=== PATIENT | female | born 1995 | race Caucasian/White ===

== ENCOUNTER 2017-07-21 08:37 | Inpatient (IN) | payer OTHER ==
[~2017-07-21] VITALS: Ht 172.7 cm; Wt 84.8 kg
[2017-07-21] MEDS ORDERED: ONDANSETRON PF 4 MG/2 ML VIAL. IV ONE (09:00)
[2017-07-21 09:12] LABS: BASO # 0.1 x10^3/uL (0.0-0.2); BASO % 1 % (0-3); EOS # 0.2 x10^3/uL (0.0-0.7); EOS % 2 % (0-3); HEMATOCRIT 39.1 % (36.0-47.0); HEMOGLOBIN 13.5 g/dL (12.0-15.5); LYMPH # 1.7 x10^3/uL (1.0-4.8); LYMPH % 25 % (24-48); MEAN CORPUSCULAR HEMOGLOBIN 28 pg (25-35); MEAN CORPUSCULAR HGB CONC 34 g/dL (31-37); MEAN CORPUSCULAR VOLUME 81 fL (79-100); MONO # 0.5 x10^3/uL (0.0-1.1); MONO % 7 % (0-9); NEUT # 4.4 x10^3uL (1.8-7.7); NEUT % 65 % (31-73); PLATELET COUNT 361 x10^3/uL (140-400); RED BLOOD COUNT 4.82 x10^6/uL (3.50-5.40); RED CELL DISTRIBUTION WIDTH 13.8 % (11.5-14.5); WHITE BLOOD COUNT 6.8 x10^3/uL (4.0-11.0)
[2017-07-21 09:31] LABS: ALBUMIN 3.1 g/dL (3.4-5.0); ALBUMIN/GLOBULIN RATIO 0.9 (1.0-1.7); CALCIUM 8.8 mg/dL (8.5-10.1); CREATININE 0.8 mg/dL (0.6-1.0); GFR 88.9; POTASSIUM 3.8 mmol/L (3.5-5.1); TOTAL BILIRUBIN 0.3 mg/dL (0.2-1.0); TOTAL PROTEIN 6.7 g/dL (6.4-8.2)
--- NOTE | 2017-07-21 09:43 | RAD ---
Examination: Ultrasound abdomen limited History: History of right upper quadrant pain for 2 weeks Comparison: None available Findings: The visualized pancreas grossly appears unremarkable. The visualized IVC IVC appear patent. No evidence of gallstones identified. The gallbladder wall thickness measures 1.8 mm. The common bile duct measures 4 mm in transverse dimension. The echogenicity of the liver grossly appears unremarkable. The liver measures 17.6 cm. The right kidney measures 12.6 x 5.4 x 4.9 cm. Impression: Unremarkable visualized exam.
[2017-07-21] MEDS ORDERED: HYDROmorphone PF 1 MG/ML DISP.SYRIN IV ONE ×2 (09:45→10:30)
[2017-07-21] MEDS ORDERED: HYDROmorphone PF 1 MG/ML DISP.SYRIN IV PRN (10:30)
[2017-07-21] MEDS ORDERED: IV NORMAL SALINE 1,000ML 1,000 ML IV SCH (10:45)
--- NOTE | 2017-07-21 11:33 | PHYS DOC ---
Past History Past Medical History: No Pertinent History Past Surgical History: Tonsillectomy Alcohol Use: None Drug Use: None Adult General Chief Complaint Chief Complaint: ABDOMINAL PAIN HPI HPI Patient is a 22 year old F who presents with mild to moderate epigastric and right upper quadrant pain that has been constant with intermittent worsening over the past 1-2 days. She describes the symptoms as previously being intermittent and starting approximately 1-2 weeks ago. She feels that her symptoms are associated with nausea and loose stools. Her symptoms are worse when she eats or drinks. She has no other associated symptoms. She has no other exacerbating or alleviating factors. Review of Systems Review of Systems Constitutional: Denies fever or chills [] Eyes: Denies change in visual acuity, redness, or eye pain [] HENT: Denies nasal congestion or sore throat [] Respiratory: Denies cough or shortness of breath [] Cardiovascular: No additional information not addressed in HPI [] GI: Negative except history of present illness : Denies dysuria or hematuria [] Musculoskeletal: Denies back pain or joint pain [] Integument: Denies rash or skin lesions [] Neurologic: Denies headache, focal weakness or sensory changes [] Endocrine: Denies polyuria or polydipsia [] All other systems were reviewed and found to be within normal limits, except as documented in this note. Family History Family History No significant family history reported Current Medications Current Medications Current medications were reviewed Current Medications Medications (Trade) Dose Ordered Sig/Tess Start Time Stop Time Status Last Admin Dose Admin Hydromorphone HCl (Dilaudid) 0.5 mg PRN Q2HR PRN 07/21/17 10:30 07/22/17 10:29 Ondansetron HCl (Zofran) 4 mg PRN Q4HRS PRN 07/21/17 10:30 07/22/17 10:29 Sodium Chloride 1,000 ml @ 0 mls/hr Q0M 07/21/17 10:45 07/22/17 10:44 Allergies Allergies Allergies Coded Allergies Type Severity Reaction Last Updated Verified ketoprofen Allergy Unknown 07/21/17 Yes Physical Exam Physical Exam Constitutional: Well developed, well nourished, no acute distress, non-toxic appearance. [] HENT: Normocephalic, atraumatic, bilateral external ears normal, oropharynx moist, no oral exudates, nose normal. [] Eyes: EOMI, conjunctiva normal, no discharge. [] Neck: Normal range of motion, no tenderness, supple, no stridor. [] Cardiovascular:Heart rate regular rhythm, no murmur [] Lungs & Thorax: Bilateral breath sounds clear to auscultation [] Abdomen: Bowel sounds normal, soft, no masses, no pulsatile masses. [] RUQ and Mid epigastric TTP with radiation to the back. When palpating in the RLQ pain radiated to the RUQ Skin: Warm, dry, no erythema, no rash. [] Back: No tenderness, no CVA tenderness. [] Extremities: No tenderness, no cyanosis, no clubbing, ROM intact, no edema. [] Neurologic: Alert and oriented X 3, normal motor function, normal sensory function, no focal deficits noted. [] Psychologic: Affect normal, judgement normal, mood normal. [] Current Patient Data Vital Signs Vital Signs Date Time Temp Pulse Resp B/P (MAP) Pulse Ox O2 Delivery O2 Flow Rate FiO2 07/21/17 10:53 61 16 102/51 (68) 98 07/21/17 10:36 Room Air 07/21/17 08:46 97.8 Lab Results Laboratory Tests Test 07/21/17 08:59 07/21/17 10:18 White Blood Count 6.8 x10^3/uL (4.0-11.0) Red Blood Count 4.82 x10^6/uL (3.50-5.40) Hemoglobin 13.5 g/dL (12.0-15.5) Hematocrit 39.1 % (36.0-47.0) Mean Corpuscular Volume 81 fL (79-100) Mean Corpuscular Hemoglobin 28 pg (25-35) Mean Corpuscular Hemoglobin Concent 34 g/dL (31-37) Red Cell Distribution Width 13.8 % (11.5-14.5) Platelet Count 361 x10^3/uL (140-400) Neutrophils (%) (Auto) 65 % (31-73) Lymphocytes (%) (Auto) 25 % (24-48) Monocytes (%) (Auto) 7 % (0-9) Eosinophils (%) (Auto) 2 % (0-3) Basophils (%) (Auto) 1 % (0-3) Neutrophils # (Auto) 4.4 x10^3uL (1.8-7.7) Lymphocytes # (Auto) 1.7 x10^3/uL (1.0-4.8) Monocytes # (Auto) 0.5 x10^3/uL (0.0-1.1) Eosinophils # (Auto) 0.2 x10^3/uL (0.0-0.7) Basophils # (Auto) 0.1 x10^3/uL (0.0-0.2) Sodium Level 141 mmol/L (136-145) Potassium Level 3.8 mmol/L (3.5-5.1) Chloride Level 107 mmol/L (98-107) Carbon Dioxide Level 25 mmol/L (21-32) Anion Gap 9 (6-14) Blood Urea Nitrogen 7 mg/dL (7-20) Creatinine 0.8 mg/dL (0.6-1.0) Estimated GFR (Cockcroft-Gault) 88.9 BUN/Creatinine Ratio 9 (6-20) Glucose Level 90 mg/dL (70-99) Lactic Acid Level 0.9 mmol/L (0.4-2.0) Calcium Level 8.8 mg/dL (8.5-10.1) Total Bilirubin 0.3 mg/dL (0.2-1.0) Aspartate Amino Transferase (AST) 14 U/L (15-37) L Alanine Aminotransferase (ALT) 14 U/L (14-59) Alkaline Phosphatase 68 U/L (46-116) Total Protein 6.7 g/dL (6.4-8.2) Albumin 3.1 g/dL (3.4-5.0) L Albumin/Globulin Ratio 0.9 (1.0-1.7) L Amylase Level 60 U/L (25-115) Lipase 130 U/L (73-393) POC Urine HCG, Qualitative hcg negative (Negative) EKG EKG [] Radiology/Procedures Radiology/Procedures US abdomen limited - Impressions: No acute disease Course & Med Decision Making Course & Med Decision Making Pertinent Labs and Imaging studies reviewed. (See chart for details) Will admit for pain control. Also plan to obtain a PIPIDA scan if possible Dragon Disclaimer Dragon Disclaimer This electronic medical record was generated, in whole or in part, using a voice recognition dictation system. Departure Departure: Impression: Primary Impression: Abdominal pain Disposition: ADMITTED INPATIENT Condition: STABLE Problem Qualifiers Primary Impression: Abdominal pain Abdominal location: right lower quadrant Qualified Codes: R10.31 - Right lower quadrant pain VIVIANE MONTGOMERY MD Jul 21, 2017 11:33
[2017-07-21] MEDS ORDERED: SINCALIDE 1.7 MCG in IV NORMAL SALINE 50ML 30 ML IV ONE (11:45)
[2017-07-21 13:11] VITALS: BP 106/61
--- NOTE | 2017-07-21 13:12 | RAD ---
Examination: HIDA scan History: History of abdominal pain for 2 weeks Comparison: Ultrasound same day exam Findings: 5.5 mCi of technetium 99m Choletec was injected IV and anterior gamma camera images were performed for 60 minutes. At 60 minutes 1.7 mcg of CCK was slowly infused and additional imaging was performed for 30 minutes for calculation of gallbladder ejection fraction. There is normal radiotracer uptake identified in the liver with normal excretion of the radiotracer into the gallbladder, common bile duct and the small bowel. The calculated gallbladder is contraction is 86%. Impression: Normal HIDA scan.
[2017-07-21] MEDS ORDERED: NORE1PAT7 TD (13:53)
[2017-07-21] MEDS: HYDROmorphone PF 2 MG/ML VIAL IV PRN ×2 (15:32→19:23)
[2017-07-21 15:53] VITALS: BP 109/71
[2017-07-21] MEDS: IV NORMAL SALINE 1,000ML 1,000 ML IV SCH (17:29)
[2017-07-21] MEDS ORDERED: IOHEXOL 240 MG/ML 50ML VIAL. ONE (17:31)
[2017-07-21] MEDS: ONDANSETRON PF 4 MG/2 ML VIAL. IV PRN (17:32)
[2017-07-21] MEDS: PANTOPRAZOLE IV PUSH 40 MG VIAL. IVP SCH (17:32)
[2017-07-21] MEDS ORDERED: IOHEXOL 300 MG/ML 75 ML VIAL. IV ONE (18:00)
[2017-07-21] MEDS ORDERED: IOHEXOL 240 MG/ML 50ML VIAL. PO ONE (18:00)
[2017-07-21] MEDS ORDERED: CONTRAST GIVEN MC PRN (18:00)
[2017-07-21 19:26] VITALS: BP 108/72
--- NOTE | 2017-07-21 19:42 | HP ---
ADMIT DATE: 07/21/2017 HISTORY OF PRESENT ILLNESS: The patient is a 22-year-old female patient who apparently came to the Emergency Room complaining of pain that has been going on for almost 2 weeks now. Initially, it was intermittent and since Monday, it has been constant. She saw , her director of plant operations, who scheduled a HIDA scan, but was not done. She did complain also of nausea and vomiting yesterday, and also had episodes of diarrhea only once yesterday. She was evaluated in the Emergency Room. So far, all her lab works are unremarkable. Her serum lipase was normal as her pain is mostly in the right upper quadrant. The pain is not radiating through and through to the back, and she denied any chills, rigors or fever. The pain is aggravated by food and relieved by salad according to her. Her abdominal ultrasound was unremarkable, which did not show any evidence of acute cholecystitis and HIDA scan showed there is normal radiotracer uptake identified in the liver with normal excretion of the radiotracer into the gallbladder, common bile duct, and small bowel. The calculated gallbladder is 86%. The patient was admitted for pain management and to investigate the source of her to have discomfort further history. PAST MEDICAL HISTORY: Significant for irritable bowel syndrome. PAST SURGICAL HISTORY: Significant for tonsillectomy and adenoidectomy. ALLERGIES: She is allergic to KETOPROFEN. MEDICATIONS: She is currently only on control pills. FAMILY HISTORY: She has one brother older and healthy. Father is 56 years old and has had bypass surgery when he was 45. Her mother is alive at age of 55 and has cholecystectomy. SOCIAL HISTORY: She is , has 1 son. She does not smoke, drink alcohol very occasionally. He does not use drugs. 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 REVIEW OF SYSTEMS: As per history of present illness. PHYSICAL EXAMINATION GENERAL: When I saw her, she looked well and was clearly in no apparent respiratory distress, no pallor, jaundice, cyanosis, or thyromegaly. No jugular venous distension. No limb edema. VITAL SIGNS: Her heart rate was 64, blood pressure was 190/71, temperature was 97.9, respiratory rate 20, and oxygen saturation was 96%. HEAD, EYES, EARS, NOSE, AND THROAT: Normocephalic, atraumatic. NECK: Supple. HEART: Showed normal first and second heart sounds with no gallop, rub or murmur. CHEST: Clear to auscultation. No crepitation or rhonchi. ABDOMEN: Slightly distended, soft with tenderness mostly in the right upper quadrant. There is no guarding or rigidity. No organomegaly. Hernial orifice intact. Bowel sounds normal. NEUROLOGIC: She was awake, alert, responding appropriately. Cranial nerves intact. EXTREMITIES: She moves extremities without difficulty. She ambulates without assistance or assistive devices. LABORATORY DATA: Showed serum sodium of 141, potassium 3.8, chloride 107, bicarbonate 25, anion gap of 9, BUN 7, creatinine 0.8, estimated GFR was 80 mL per minute. Her glucose was 90. Lactic acid was 0.9. Calcium was 8.8. Total bilirubin, AST, ALT, alkaline phosphatase were normal. Her total protein was 6.7, albumin 3.1, amylase was 60, and serum lipase 130. Her white cell count was 6800, hemoglobin 13.5, hematocrit 39, MCV 81, and platelet count of 361,000. Her urinalysis showed that her urine test was negative. As I stated, her abdominal ultrasound showed that the visualized pancreas grossly appears unremarkable. The visualized IVC appears patent, no evidence of gallstones identified. The gallbladder wall thickness measures 1.8 mm. The common bile duct measures 4 mm in transverse diameter and echogenicity of the liver grossly appears unremarkable. The liver measures 17.6 cm. The right kidney measures 12.6 x 5.4 x 4.9 cm, essentially normal. Her HIDA scan was also unremarkable, showed a tracer into the gallbladder, common bile duct, and the small bowel, and a calculated gallbladder in contraction is 86%, so severe intractable right upper quadrant pain, so far with no obvious cause. PLAN: My plan is to continue with IV fluid. The patient can be on clear liquid diet. If she is tolerating diet, we will continue with pain medication and antiemetic. I will arrange for her to repeat all her labs tomorrow and also arrange for a CT scan of the abdomen and pelvis with oral and IV contrast and we will decide the further management accordingly. SINDHU BUCKLEY MD DR: SHARAD/edward JOB#: [id number] / [id number]
--- NOTE | 2017-07-21 19:44 | RAD ---
CT abdomen and pelvis with contrast 07/21/2017 Clinical indications: Right upper quadrant abdominal pain. No surgery or known injury. COMPARISON: None. TECHNIQUE: Multiple CT images of the abdomen and pelvis were obtained following the intravenous and ministration of 75 mL Omnipaque 300. *One or more of the following individualized dose reduction techniques were utilized for this examination: 1. Automated exposure control. 2. Adjustment of the mA and/or kV according to patient size. 3. Use of iterative reconstruction technique. FINDINGS: There is a 4 mm noncalcified nodule in the left lower lobe series 2/image 7. There is a 2 mm noncalcified nodule in the right lower lobe series 2/image 5. Heart size is normal. Liver, gallbladder, spleen, adrenal glands, pancreas and kidneys are unremarkable. Abdominal aorta is normal in caliber. Major portal, splenic and visualized appear mesenteric veins are patent. No retroperitoneal or mesenteric lymphadenopathy. No abdominal free fluid. No pneumoperitoneum. Appendix is normal in appearance. The small and large bowel loops are normal in caliber without obstruction. Urinary bladder and uterus unremarkable. No iliac or inguinal lymphadenopathy. No pelvic free fluid. There are no destructive osseous lesions. IMPRESSION: 1. No CT evidence of acute abdominopelvic process. 2. Bibasilar noncalcified pulmonary nodules, largest measuring 4 mm, indeterminate. Nonemergent dedicated CT chest is recommended. Electronically signed by: Stephen Galvin MD (07/21/2017 7:40 PM) [facility]
[2017-07-22 00:27] VITALS: BP 105/70
[2017-07-22] MEDS: HYDROmorphone PF 2 MG/ML VIAL IV PRN ×3 (03:02→12:04)
[2017-07-22] MEDS: IV NORMAL SALINE 1,000ML 1,000 ML IV SCH ×3 (03:02→23:30)
[2017-07-22] MEDS: ONDANSETRON PF 4 MG/2 ML VIAL. IV PRN (05:38)
[2017-07-22 05:40] VITALS: BP 110/74
[2017-07-22 06:06] LABS: BASO % 1 % (0-3); EOS # 0.2 x10^3/uL (0.0-0.7); EOS % 3 % (0-3); HEMATOCRIT 35.2 % (36.0-47.0); HEMOGLOBIN 11.9 g/dL (12.0-15.5); LYMPH # 2.3 x10^3/uL (1.0-4.8); LYMPH % 36 % (24-48); MEAN CORPUSCULAR HEMOGLOBIN 28 pg (25-35); MEAN CORPUSCULAR HGB CONC 34 g/dL (31-37); MEAN CORPUSCULAR VOLUME 82 fL (79-100); MONO # 0.5 x10^3/uL (0.0-1.1); MONO % 8 % (0-9); NEUT # 3.3 x10^3uL (1.8-7.7); NEUT % 53 % (31-73); PLATELET COUNT 322 x10^3/uL (140-400); RED BLOOD COUNT 4.28 x10^6/uL (3.50-5.40); RED CELL DISTRIBUTION WIDTH 13.9 % (11.5-14.5); WHITE BLOOD COUNT 6.3 x10^3/uL (4.0-11.0)
[2017-07-22 06:21] LABS: ALBUMIN 2.6 g/dL (3.4-5.0); ALBUMIN/GLOBULIN RATIO 0.8 (1.0-1.7); C REACTIVE PROTEIN 5.5 mg/L (0-3.3); CALCIUM 8.2 mg/dL (8.5-10.1); CREATININE 0.8 mg/dL (0.6-1.0); GFR 88.9; POTASSIUM 3.7 mmol/L (3.5-5.1); TOTAL BILIRUBIN 0.3 mg/dL (0.2-1.0); TOTAL PROTEIN 5.8 g/dL (6.4-8.2)
[2017-07-22 07:15] LABS: SEDIMENTATION RATE 3 (0-25)
[2017-07-22] MEDS: PANTOPRAZOLE IV PUSH 40 MG VIAL. IVP SCH (08:21)
[2017-07-22 10:41] VITALS: BP 106/71
[2017-07-22] MEDS ORDERED: SUCRALFATE 1 GM/10 ML ORAL.SUSP. PO ONE (14:00)
[2017-07-22 15:50] VITALS: BP 107/69
[2017-07-22] MEDS: SUCRALFATE 1 GM/10 ML ORAL.SUSP. PEG SCH ×2 (16:31→21:38)
[2017-07-22 19:29] VITALS: BP 112/72
--- NOTE | 2017-07-23 01:48 | PN ---
DATE: 07/22/2017 SUBJECTIVE: The patient is resting slightly propped up in bed, no apparent distress. She continued to complain of abdominal pain rated at 6/10. She has also nausea, but no vomiting. All her lab works including sed rate and CRP are normal. Her abdominal ultrasound, HIDA scan, and CT scan of the abdomen and pelvis are all unremarkable. OBJECTIVE: GENERAL: On examining her today, she looked well and was clearly in no apparent respiratory distress, pale, but no jaundice, cyanosis, or thyromegaly. No jugular venous distension. No limb edema. VITAL SIGNS: Her heart rate was 63, blood pressure 106/71, temperature was 97.8, respiratory rate was 20, and oxygen saturation was 98%. HEAD, EYES, EARS, NOSE, AND THROAT: Normocephalic, atraumatic. NECK: Supple. HEART: Showed normal first and second heart sounds. No gallop, rub, or murmur. CHEST: Clear to auscultation. No crepitation or rhonchi. ABDOMEN: Distended, soft, nontender. NEUROLOGIC: She was awake, alert, responding appropriately, and cranial nerves intact. She moves extremities without difficulty. Her intake was 2250, output was 750. LABORATORY DATA: As of this morning, her white cell count was 6300, hemoglobin 11.9, hematocrit 35, MCV 82, and platelet count of 232,000. Her chemistry showed a serum sodium 141, potassium 3.7, chloride 107, bicarbonate 26, anion gap of 8, BUN 5, creatinine 0.8, estimated GFR was 89 mL per minute. Her glucose was 89. Lactic acid was 0.9. Her calcium was 8.2. Total bilirubin, AST, ALT, alkaline phosphatase were normal. Her C-reactive protein was 5.5 mg/dL. Total protein 5.8, albumin 2.6. Serum lipase was 90. Her CT scan of the abdomen and pelvis showed that no CT scan evidence of acute abdominopelvic process, bibasilar noncalcified pulmonary nodules, largest measuring 4 mm, indeterminate. PLAN: To continue with IV fluid, advance her diet as tolerated. Add Carafate and she is able to tolerate her food. We can discharge her to arrange for an outpatient upper GI endoscopy. AHMED M. MARCIO, MD DR: SHARAD/edward JOB#: [id number] / [id number]
[2017-07-23 05:54] VITALS: BP 90/56
[2017-07-23] MEDS: PANTOPRAZOLE IV PUSH 40 MG VIAL. IVP SCH ×2 (07:30→07:57)
[2017-07-23] MEDS: SUCRALFATE 1 GM/10 ML ORAL.SUSP. PEG SCH (07:57)
[2017-07-23 11:17] VITALS: BP 115/79
[2017-07-23] MEDS ORDERED: SUCR1TAB35 PO (11:20)
[2017-07-23] MEDS ORDERED: PANT40TA3 PO (11:20)
--- NOTE | 2017-07-23 12:02 | DS ---
DATE OF DISCHARGE: 07/23/2017 HOSPITAL COURSE: The patient was admitted with severe intractable right upper quadrant pain. She was extensively investigated. She has an abdominal ultrasound, HIDA scan as well as CT scan of the abdomen and pelvis without any findings. We did start her on IV Protonix as well as Carafate and that her pain has dramatically improved. Has been able to tolerate food and her diet was advanced as tolerated and today the pain has almost completely subsided, and she will be discharged home to continue with this treatment and was given Dr. Jorge Luis Calles and I recommended that she should contact his office and follow up with him as she might eventually require upper GI endoscopy. PHYSICAL EXAMINATION: GENERAL: On examining her today, she looked well and was clearly in no apparent respiratory distress, pale, but no jaundice, cyanosis, or thyromegaly. No jugular venous distension. No limb edema. VITAL SIGNS: Her heart rate was 65, blood pressure was 115/79, temperature was 97.7, respiratory rate 20, and oxygen saturation was 96%. HEAD, EYES, EARS, NOSE AND THROAT: Normocephalic, atraumatic. NECK: Supple. HEART: Showed normal first and second sounds. No gallop, rub or murmur. CHEST: Clear to auscultation. No crepitation or rhonchi. ABDOMEN: Distended, soft, nontender. No guarding or rigidity. No organomegaly. Hernial orifice intact. Bowel sounds normal. NEUROLOGIC: She is awake, alert, responding appropriately. Her cranial nerves intact. EXTREMITIES: She moves extremities without difficulty. She ambulates without assistance or assistive devices. LABORATORY DATA: Unremarkable. Her serum sodium was 141, potassium 3.7, chloride 107, bicarbonate 26, and anion gap of 8. BUN 5, creatinine 0.8, estimated GFR was 88 mL per minute. Her glucose was 89, calcium was 8.2. Total bilirubin, AST, ALT, alkaline phosphatase were normal. Total protein was 5.8, albumin 2.6. Serum lipase was done twice and was normal. Her C-reactive protein was 5.5 mg/dL. Her white cell count was 6300, hemoglobin 12, hematocrit 35, MCV 82 and platelet count 322,000. Her sedimentation rate was only 3. As I stated, her abdominal ultrasound, HIDA scan and CT scan of the abdomen and pelvis were unremarkable. DISCHARGE MEDICATIONS: The patient was discharged home to continue on Protonix 40 mg once a day and Carafate 1 gram before meals and bedtime. FINAL DISCHARGE DIAGNOSES: Severe intractable right upper quadrant pain, most likely related to peptic ulcer disease. SINDUH BUCKLEY MD DR: SHARAD/edward JOB#: [id number] / [id number]
== END 2017-07-23 11:30 | disposition home or self-care (01) | DRG 384 ==
LOC: ER 08:37 → 1 SOUTH 10:55 → OBSVTOIN 12:01
PROVIDERS: ADMIT Internal Medicine; ATTEND Internal Medicine
DX: K27.9 Peptic ulcer, site unspecified, unspecified as acute or chronic, without hemorrhage or perforation (principal); K58.0 Irritable bowel syndrome with diarrhea; Z88.8 Allergy status to other drugs, medicaments and biological substances; Z90.49 Acquired absence of other specified parts of digestive tract; Z90.89 Acquired absence of other organs
CPT/HCPCS: 36415; 74177; 76705; 78226; 80053; 81025; 82150; 82947; 83605; 83690; 85025; 85651; 86140; 96374; 96375; A9537; C9113; G0379; J1170; J2405; J2805; Q9966; Q9967; J7030

== ENCOUNTER 2017-09-12 00:55 | Emergency (ER) | payer OTHER ==
[~2017-09-12] VITALS: Ht 175.3 cm; Wt 83.9 kg
[~2017-09-12 00:55] MED LIST: NORE1PAT7 TD; PANT40TA3 PO; SUCR1TAB35 PO
--- NOTE | 2017-09-12 02:01 | PHYS DOC ---
General Chief Complaint: COUGH Stated Complaint: DIZZY,FEVER,TIRED Time Seen by MD: 01:05 Source: patient Exam Limitations: no limitations Problems: History of Present Illness Initial Comments Patient is a 22-year-old female who typically follows at [facility] with fever and sore throat. Patient states that she's had a severe sore throat limiting by mouth intake for the past several days. She's had a dry cough without any shortness of breath and cough has been nonproductive. She's had a headache and body ache chills and sweats, no measured fevers no neck stiffness or rash. Wwtm-sde-[id number] medications not helping him today she's been dizzy when up and active she feels dehydrated. On my evaluation patient is ill-appearing she is mildly dehydrated with dry lips and no respiratory distress. He vitals on arrival are normal. Timing/Duration: getting worse Severity: severe Modifying Factors: worse with eating, worse with movement, improves with rest Associated Symptoms: cough, diaphoresis, fever/chills, headaches, malaise, weakness, other Allergies: Coded Allergies: ketoprofen (Verified Allergy, Intermediate, 07/22/17) Past Medical History Medical History: no pertinent history Surgical History: noncontributory Social History Smoker: non-smoker Alcohol: none Drugs: none Review of Systems Constitutional: see HPI EENTM: see HPI Respiratory: see HPI, denies shortness of breath Cardiovascular: denies chest pain, denies palpitations Gastrointestinal: denies abdominal pain, denies nausea, denies vomiting Musculoskeletal: denies back pain, muscle pain, denies muscle stiffness, denies neck pain Psychiatric/Neurological: headache, denies numbness, denies paresthesia, denies weakness Physical Exam General Appearance: mild distress (ill-appearing) Ear, Nose, Throat: hearing grossly normal, other (pharynx is beefy red with exudate airway is widely patent mucous membranes are moist) Neck: supple, other (tender shotty lymphadenopathy noted bilaterally) Respiratory: normal breath sounds, no respiratory distress Gastrointestinal: non tender, soft Back: no CVA tenderness, no vertebral tenderness Extremities: normal range of motion, non-tender, normal inspection Neurologic/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 Departure instructions were given [id number] and provided in written form see below. Departure Time of Disposition: 02:34 Disposition: 01 HOME, SELF-CARE Diagnosis: pharyngitis Condition: GOOD Patient Instructions: Viral and Bacterial Pharyngitis, [id number] Additional Instructions: Please review the patient education materials given by ED staff. Aggressive hydration with Gatorade and water. [id number] Tylenol, ibuprofen, and analgesic throat sprays as needed. Prescription: Zithromax Off work through September 15. Follow-up at [facility] on Monday. Return to ED with new or changing symptoms. RACHNA NG DO Sep 12, 2017 02:01
[2017-09-12 02:22] LABS: INFLUENZA A PATIENT NEGATIVE (NEGATIVE); INFLUENZA B PATIENT NEGATIVE (NEGATIVE)
[2017-09-12] MEDS ORDERED: AZIT250T PO (02:33)
[2017-09-12 02:40] VITALS: BP 135/83
[2017-09-12] MEDS ORDERED: AZITHROMYCIN 250 MG TABLET. PO ONE (02:45)
== END 2017-09-12 02:45 | disposition home or self-care (01) ==
LOC: ER 00:55
DX: J02.9 Acute pharyngitis, unspecified (principal); R51 Headache; Z88.8 Allergy status to other drugs, medicaments and biological substances
CPT/HCPCS: 87070; 87804; 87880; 99284; J0456

== ENCOUNTER 2017-11-01 20:45 | Emergency (ER) | payer OTHER ==
[~2017-11-01] VITALS: Ht 175.3 cm; Wt 86.2 kg
[~2017-11-01 20:45] MED LIST changes: +AZIT250T PO
[2017-11-01] MEDS ORDERED: IV NORMAL SALINE 1,000ML 1,000 ML IV ONE (21:15)
[2017-11-01] MEDS ORDERED: MORPHINE SULFATE 4 MG/ML DISP.SYRIN. IV ONE (21:15)
[2017-11-01] MEDS ORDERED: ONDANSETRON PF 4 MG/2 ML VIAL. IV ONE (21:15)
[2017-11-01 21:26] LABS: BASO # 0.1 x10^3/uL (0.0-0.2); BASO % 1 % (0-3); EOS # 0.2 x10^3/uL (0.0-0.7); EOS % 3 % (0-3); HEMATOCRIT 40.9 % (36.0-47.0); HEMOGLOBIN 13.8 g/dL (12.0-15.5); LYMPH # 1.8 x10^3/uL (1.0-4.8); LYMPH % 22 % (24-48); MEAN CORPUSCULAR HEMOGLOBIN 27 pg (25-35); MEAN CORPUSCULAR HGB CONC 34 g/dL (31-37); MEAN CORPUSCULAR VOLUME 81 fL (79-100); MONO # 0.7 x10^3/uL (0.0-1.1); MONO % 9 % (0-9); NEUT # 5.5 x10^3uL (1.8-7.7); NEUT % 66 % (31-73); PLATELET COUNT 406 x10^3/uL (140-400); RED BLOOD COUNT 5.06 x10^6/uL (3.50-5.40); RED CELL DISTRIBUTION WIDTH 13.9 % (11.5-14.5); WHITE BLOOD COUNT 8.4 x10^3/uL (4.0-11.0)
[2017-11-01 21:46] LABS: ALBUMIN 3.7 g/dL (3.4-5.0); ALBUMIN/GLOBULIN RATIO 0.9 (1.0-1.7); CALCIUM 9.5 mg/dL (8.5-10.1); CREATININE 0.9 mg/dL (0.6-1.0); GFR 77.6; POTASSIUM 3.8 mmol/L (3.5-5.1); TOTAL BILIRUBIN 0.3 mg/dL (0.2-1.0); TOTAL PROTEIN 7.8 g/dL (6.4-8.2)
[2017-11-01] MEDS ORDERED: KETOROLAC 30 MG/ML VIAL. IV ONE (22:15)
--- NOTE | 2017-11-01 22:39 | RAD ---
ABDOMEN LTD dated 11/01/2017 10:21 PM. Comparison: None Clinical Indication: RUQ PAIN . Findings: The liver is homogeneous in echotexture with no evidence of focal hepatic mass. Intrahepatic and extra hepatic biliary ducts are normal in caliber. The common bile duct measures 4 mm. The gallbladder is normal in size and echogenicity without gallbladder wall thickening or pericholecystic fluid. No gallstones are seen. Right kidney measures 12.4 cm in length without hydronephrosis. Left kidney was not imaged. Limited visualized portions of the pancreas, aorta and IVC are unremarkable. No significant ascites. IMPRESSION: Negative right upper quadrant ultrasound. Electronically signed by: Juan M Mitchell MD (11/01/2017 10:36 PM) [facility]
[2017-11-01 22:42] LABS: BILIRUBIN,URINE NEG (NEG); CLARITY,URINE CLEAR; COLOR,URINE YELLOW; GLUCOSE,URINE NEG (NEG)
[2017-11-01 22:43] LABS: BACTERIA,URINE 0 /HPF (0-FEW); NITRITE,URINE NEG (NEG); SQUAMOUS EPITHELIAL CELL,UR MOD /LPF; UROBILINOGEN,URINE 0.2 mg/dL (0.2 mg/dL); WBC,URINE OCC /HPF (0-4)
[2017-11-01] MEDS ORDERED: HYOS0.1265 SL (22:51)
--- NOTE | 2017-11-01 22:51 | PHYS DOC ---
Past History Past Medical History: No Pertinent History Past Surgical History: Tonsillectomy Alcohol Use: None Drug Use: None Adult General Chief Complaint Chief Complaint: ABDOMINAL PAIN HPI HPI Patient is an otherwise healthy 22-year-old female who presents to the ER today secondary to right upper quadrant abdominal pain that she is concerned about her being her gallbladder. Patient reports that she's been evaluated by her primary care physician and she is scheduled for an ultrasound of the right upper quadrant in approximately one week however the pain was severe today so she brought herself to the ER for further evaluation and management of her discomfort. Patient denies any fevers shakes chills. Patient per she is nauseous no diarrhea. Patient has a dysuria frequency or urgency. Patient has any vaginal bleeding. Patient reports that today she had potato soup was able tolerate it well however the pain increased shortly thereafter. Patient denies any pain to her right lower quadrant. Patient has any flank pain. Patient denies any pain with ambulation. Patient reports that the pain improves when she gets into the position. Patient has any melena or bright red blood per rectum. Hematuria. Review of systems: Constitutional: Denies fever or chills Eyes: Denies change in visual acuity, redness, or eye pain HENT: Denies nasal congestion or sore throat All other review systems are negative except as documented in the history of present illness portion. Physical exam: Constitutional: Well developed, well nourished, no acute distress, non-toxic appearance. HENT: Normocephalic, atraumatic, bilateral external ears normal, nose normal. Eyes: EOMI, conjunctiva normal, no discharge. Neck: Normal range of motion, no tenderness, supple, no stridor. Cardiovascular:Heart rate regular rhythm Lungs & Thorax: Bilateral breath sounds clear to auscultation no respiratory distress Abdomen: Bowel sounds normal, soft, no tenderness, no masses, no pulsatile masses. Skin: Warm, dry, no erythema, no rash. Back: No tenderness, no CVA tenderness. Extremities: No tenderness, no cyanosis, no clubbing, ROM intact, no edema. Neurologic: Alert and oriented X 3, normal motor function, normal sensory function, no focal deficits noted. Psychologic: Affect normal, judgement normal, mood normal. Abdomen soft no rebound or guarding NABS. No Ziegler sign, no tenderness to McBurney's point. Patient not present with any signs or symptoms of be consistent with an acute surgical abdomen. Mild tenderness to palpation right upper quadrant Ultrasound right upper quadrant reveals no significant abnormalities. No stones normal gallbladder Assessment and plan 22-year-old female presents ED today complaining of abdominal discomfort. [place] right upper quadrant. Patient's ER workup is been unremarkable. Patient has had normal CBC, CMP, lipase, UA. Patient's process is negative. Patient's ultrasound was unremarkable. Patient's ER hospital course was significant for receiving normal saline, morphine, Toradol with some improvement in her discomfort. Given the normal workup in the ED the patient was advised to follow- up with her primary care physician for referral to see a GI specialist for further evaluation of her discomfort. Patient currently is clinically hemodynamically stable and does not present with any signs or symptoms O be consistent with an acute surgical abdomen. Current Medications Current Medications Current Medications Medications (Trade) Dose Ordered Sig/Tess Start Time Stop Time Status Last Admin Dose Admin Ketorolac Tromethamine (Toradol) 30 mg 1X ONCE 11/01/17 22:15 11/01/17 22:16 DC 11/01/17 22:30 30 MG Morphine Sulfate (Morphine 4mg Syringe) 4 mg 1X ONCE 11/01/17 21:15 11/01/17 21:32 DC 11/01/17 21:20 4 MG Ondansetron HCl (Zofran) 4 mg 1X ONCE 11/01/17 21:15 11/01/17 21:32 DC 11/01/17 21:20 4 MG Sodium Chloride 1,000 ml @ 1,000 mls/hr 1X ONCE 11/01/17 21:15 11/01/17 22:14 DC 11/01/17 21:19 1,000 MLS/HR Allergies Allergies Allergies Coded Allergies Type Severity Reaction Last Updated Verified ketoprofen Allergy Intermediate 07/22/17 Yes Current Patient Data Vital Signs Vital Signs Date Time Temp Pulse Resp B/P (MAP) Pulse Ox O2 Delivery O2 Flow Rate FiO2 11/01/17 21:20 16 11/01/17 20:48 98.1 90 97 Room Air Lab Results Laboratory Tests Test 11/01/17 20:56 11/01/17 20:57 11/01/17 21:15 POC Urine HCG, Qualitative hcg negative (Negative) White Blood Count 8.4 x10^3/uL (4.0-11.0) Red Blood Count 5.06 x10^6/uL (3.50-5.40) Hemoglobin 13.8 g/dL (12.0-15.5) Hematocrit 40.9 % (36.0-47.0) Mean Corpuscular Volume 81 fL (79-100) Mean Corpuscular Hemoglobin 27 pg (25-35) Mean Corpuscular Hemoglobin Concent 34 g/dL (31-37) Red Cell Distribution Width 13.9 % (11.5-14.5) Platelet Count 406 x10^3/uL (140-400) H Neutrophils (%) (Auto) 66 % (31-73) Lymphocytes (%) (Auto) 22 % (24-48) L Monocytes (%) (Auto) 9 % (0-9) Eosinophils (%) (Auto) 3 % (0-3) Basophils (%) (Auto) 1 % (0-3) Neutrophils # (Auto) 5.5 x10^3uL (1.8-7.7) Lymphocytes # (Auto) 1.8 x10^3/uL (1.0-4.8) Monocytes # (Auto) 0.7 x10^3/uL (0.0-1.1) Eosinophils # (Auto) 0.2 x10^3/uL (0.0-0.7) Basophils # (Auto) 0.1 x10^3/uL (0.0-0.2) Sodium Level 138 mmol/L (136-145) Potassium Level 3.8 mmol/L (3.5-5.1) Chloride Level 100 mmol/L (98-107) Carbon Dioxide Level 26 mmol/L (21-32) Anion Gap 12 (6-14) Blood Urea Nitrogen 10 mg/dL (7-20) Creatinine 0.9 mg/dL (0.6-1.0) Estimated GFR (Cockcroft-Gault) 77.6 BUN/Creatinine Ratio 11 (6-20) Glucose Level 88 mg/dL (70-99) Calcium Level 9.5 mg/dL (8.5-10.1) Total Bilirubin 0.3 mg/dL (0.2-1.0) Aspartate Amino Transferase (AST) 20 U/L (15-37) Alanine Aminotransferase (ALT) 18 U/L (14-59) Alkaline Phosphatase 75 U/L (46-116) Total Protein 7.8 g/dL (6.4-8.2) Albumin 3.7 g/dL (3.4-5.0) Albumin/Globulin Ratio 0.9 (1.0-1.7) L Lipase 119 U/L (73-393) Urine Collection Type Unknown Urine Color Yellow Urine Clarity Clear Urine pH 6.0 Urine Specific [place] 1.010 Urine Protein Neg (NEG-TRACE) Urine Glucose (UA) Neg mg/dL (NEG) Urine Ketones (Stick) Neg mg/dL (NEG) Urine Blood Neg (NEG) Urine Nitrite Neg (NEG) Urine Bilirubin Neg (NEG) Urine Urobilinogen Dipstick 0.2 mg/dL (0.2 mg/dL) Urine Leukocyte Esterase Neg (NEG) Urine RBC 1-2 /HPF (0-2) Urine WBC Occ /HPF (0-4) Urine Squamous Epithelial Cells Mod /LPF Urine Bacteria 0 /HPF (0-FEW) Urine Mucus Slight /LPF EKG EKG [] Radiology/Procedures Radiology/Procedures [] Course & Med Decision Making Course & Med Decision Making Pertinent Labs and Imaging studies reviewed. (See chart for details) [] Dragon Disclaimer Dragon Disclaimer This electronic medical record was generated, in whole or in part, using a voice recognition dictation system. Departure Departure: Impression: Primary Impression: Nausea Additional Impression: Abdominal pain Disposition: 01 HOME, SELF-CARE Condition: IMPROVED Referrals: NOEMI HICKS MD (PCP) Patient Instructions: Abdominal Pain (Nonspecific) Scripts Hyoscyamine Sulfate (LEVSIN-SL) 0.125 Mg Tab.subl 0.125 MG SL Q4-6HRS Y for abd pain, #14 TAB Prov: ISAIAH HAMILTON MD 11/01/17 Problem Qualifiers ISAIAH HAMILTON MD Nov 01, 2017 22:51
[2017-11-01 23:00] VITALS: BP 116/65
== END 2017-11-01 23:00 | disposition home or self-care (01) ==
LOC: ER 20:45
DX: R10.11 Right upper quadrant pain (principal); R11.0 Nausea; R30.0 Dysuria; Z88.6 Allergy status to analgesic agent
CPT/HCPCS: 36415; 76705; 80053; 81001; 81025; 83690; 85025; 96361; 96374; 96375; 99285; J1885; J2270; J2405; J7030

== ENCOUNTER 2018-04-26 22:29 | Emergency (ER) | payer OTHER ==
[~2018-04-26] VITALS: Ht 175.3 cm; Wt 88.5 kg
[~2018-04-26 22:29] MED LIST changes: +HYOS0.1265 SL
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
[2018-04-26 22:50] VITALS: BP 125/77
[2018-04-26] MEDS ORDERED: IV NORMAL SALINE 1,000ML 1,000 ML IV SCH (23:00)
--- NOTE | 2018-04-26 23:00 | EKG ---
[address] [address] Test Date: 2018-04-26 Test Time: 22:55:40 Pat Name: VINICIUS CHAVES Department: Room: Gender: F [employer]: : 1995 Requested By: MELIA WANG Order Number: [id number] Reading MD: Bill Kelsey MD Measurements Intervals [place] Rate: 65 P: 26 DC: 206 QRS: 64 QRSD: 76 T: 12 QT: 392 QTc: 408 Interpretive Statements SINUS ARRHYTHMIA Electronically Signed On 04-27-2018 12:26:23 CDT by Bill Kelsey MD
[2018-04-26 23:38] LABS: BASO % 1 % (0-3); EOS # 0.2 x10^3/uL (0.0-0.7); EOS % 3 % (0-3); HEMATOCRIT 37.9 % (36.0-47.0); HEMOGLOBIN 12.9 g/dL (12.0-15.5); LYMPH # 1.8 x10^3/uL (1.0-4.8); LYMPH % 24 % (24-48); MEAN CORPUSCULAR HEMOGLOBIN 28 pg (25-35); MEAN CORPUSCULAR HGB CONC 34 g/dL (31-37); MEAN CORPUSCULAR VOLUME 81 fL (79-100); MONO # 0.5 x10^3/uL (0.0-1.1); MONO % 7 % (0-9); NEUT % 66 % (31-73); PLATELET COUNT 382 x10^3/uL (140-400); RED BLOOD COUNT 4.67 x10^6/uL (3.50-5.40); RED CELL DISTRIBUTION WIDTH 14.2 % (11.5-14.5); WHITE BLOOD COUNT 7.6 x10^3/uL (4.0-11.0)
[2018-04-26 23:44] LABS: BILIRUBIN,URINE NEG (NEG); CLARITY,URINE CLEAR; COLOR,URINE YELLOW; GLUCOSE,URINE NEG (NEG)
[2018-04-26 23:45] LABS: BACTERIA,URINE 0 /HPF (0-FEW); NITRITE,URINE NEG (NEG); RBC,URINE 0 /HPF (0-2); SQUAMOUS EPITHELIAL CELL,UR OCC /LPF; UROBILINOGEN,URINE 0.2 mg/dL (0.2 mg/dL); WBC,URINE RARE /HPF (0-4)
[2018-04-26 23:50] LABS: BARBITURATES NEG (NEG); BENZODIAZEPINES NEG (NEG); CANNABINOIDS NEG (NEG); COCAINE NEG (NEG); METHADONE NEG (NEG); OPIATES NEG (NEG); PHENCYCLIDINE NEG (NEG)
[2018-04-26 23:57] LABS: AMPHETAMINE/METHAMPHETAMINE NEG (NEG)
[2018-04-26 23:58] LABS: ALBUMIN 3.6 g/dL (3.4-5.0); CALCIUM 8.9 mg/dL (8.5-10.1); CREATININE 0.7 mg/dL (0.6-1.0); DIRECT BILIRUBIN 0.1 mg/dL (0.0-0.2); GFR 102.8; MAGNESIUM 2.1 mg/dL (1.8-2.4); POTASSIUM 3.5 mmol/L (3.5-5.1); TOTAL BILIRUBIN 0.4 mg/dL (0.2-1.0); TOTAL PROTEIN 7.1 g/dL (6.4-8.2)
== END 2018-04-27 00:06 | disposition home or self-care (01) ==
LOC: ER 22:29
DX: S61.032A Puncture wound without foreign body of left thumb without damage to nail, initial encounter (principal); T75.4XXA Electrocution, initial encounter; Z88.8 Allergy status to other drugs, medicaments and biological substances; W27.8XXA Contact with other nonpowered hand tool, initial encounter; W86.8XXA Exposure to other electric current, initial encounter; Y93.89 Activity, other specified; Y92.89 Other specified places as the place of occurrence of the external cause; Y99.8 Other external cause status
CPT/HCPCS: 36415; 80048; 80076; 80307; 81001; 82553; 83735; 84484; 85025; 85610; 85730; 86592; 86705; 86709; 86803; 87340; 93005; 99285-25; G0479; J7030

== ENCOUNTER 2018-05-05 17:33 | Emergency (ER) | payer OTHER ==
[~2018-05-05] VITALS: Ht 175.3 cm; Wt 89.3 kg
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
[2018-05-05] MEDS ORDERED: IV RINGERS SOLUTION,LACTATED 1,000 ML IV SCH (18:09)
[2018-05-05] MEDS ORDERED: ASPIRIN 81 MG TAB.CHEW PO ONE (18:15)
--- NOTE | 2018-05-05 18:36 | RAD ---
EXAM: CHEST PA LATERAL DATE: 05/05/2018 6:16 PM INDICATION: Constant chest pain today COMPARISON: No Prior FINDINGS: The heart is not enlarged. Mediastinal and hilar contours are normal. No focal parenchymal airspace opacity. No pleural effusion or pneumothorax. IMPRESSION: 1. No radiographic evidence for acute cardiopulmonary process. Electronically signed by: Keegan Londono MD (05/05/2018 6:32 PM) [facility]
[2018-05-05 18:38] LABS: AMPHETAMINE/METHAMPHETAMINE NEG (NEG); BARBITURATES NEG (NEG); BENZODIAZEPINES NEG (NEG); CANNABINOIDS NEG (NEG); COCAINE NEG (NEG); METHADONE NEG (NEG); OPIATES NEG (NEG); PHENCYCLIDINE NEG (NEG)
[2018-05-05 18:41] LABS: CLARITY,URINE HAZY; COLOR,URINE STRAW
[2018-05-05 18:42] LABS: BACTERIA,URINE FEW /HPF (0-FEW); BILIRUBIN,URINE NEG (NEG); GLUCOSE,URINE NEG (NEG); NITRITE,URINE NEG (NEG); RBC,URINE 0 /HPF (0-2); SQUAMOUS EPITHELIAL CELL,UR FEW /LPF; UROBILINOGEN,URINE 0.2 mg/dL (0.2 mg/dL)
[2018-05-05 19:02] LABS: BASO # 0.1 x10^3/uL (0.0-0.2); BASO % 1 % (0-3); EOS # 0.2 x10^3/uL (0.0-0.7); EOS % 2 % (0-3); HEMATOCRIT 39.2 % (36.0-47.0); HEMOGLOBIN 13.4 g/dL (12.0-15.5); LYMPH # 1.9 x10^3/uL (1.0-4.8); LYMPH % 22 % (24-48); MEAN CORPUSCULAR HEMOGLOBIN 28 pg (25-35); MEAN CORPUSCULAR HGB CONC 34 g/dL (31-37); MEAN CORPUSCULAR VOLUME 82 fL (79-100); MONO # 0.6 x10^3/uL (0.0-1.1); MONO % 7 % (0-9); NEUT # 5.9 x10^3uL (1.8-7.7); NEUT % 68 % (31-73); PLATELET COUNT 382 x10^3/uL (140-400); RED CELL DISTRIBUTION WIDTH 14.1 % (11.5-14.5); WHITE BLOOD COUNT 8.7 x10^3/uL (4.0-11.0)
[2018-05-05 19:16] LABS: ALBUMIN 3.5 g/dL (3.4-5.0); CALCIUM 9.6 mg/dL (8.5-10.1); CREATININE 0.9 mg/dL (0.6-1.0); DIRECT BILIRUBIN 0.1 mg/dL (0.0-0.2); GFR 76.9; MAGNESIUM 1.7 mg/dL (1.8-2.4); POTASSIUM 3.6 mmol/L (3.5-5.1); TOTAL BILIRUBIN 0.4 mg/dL (0.2-1.0)
--- NOTE | 2018-05-05 19:17 | EKG ---
[address] [address] Test Date: 2018-05-05 Test Time: 17:39:06 Pat Name: VINICIUS CHAVES Department: Room: Gender: F [employer] Consultant: : 1995 Requested By: MELIA WANG Order Number: [id number] Reading MD: Roel Armstrong Measurements Intervals [place] Rate: 73 P: 26 MT: 198 QRS: 46 QRSD: 78 T: 22 QT: 384 QTc: 427 Interpretive Statements SINUS RHYTHM Electronically Signed On 05-08-2018 10:57:50 CDT by Roel Armstrong
[2018-05-05 20:13] VITALS: BP 120/69
[2018-05-05] MEDS ORDERED: FAMO-63 PO (20:27)
[2018-05-05] MEDS ORDERED: SUCR1TAB35 PO (20:28)
[2018-05-05] MEDS ORDERED: SUCRALFATE 1 GM TABLET. PO ONE (20:30)
[2018-05-05] MEDS ORDERED: MAGNESIUM HYDROXIDE 2,400 MG/30 ML ORAL.SUSP. PO ONE (20:30)
[2018-05-05] MEDS ORDERED: FAMOTIDINE 20 MG TABLET PO ONE (20:30)
== END 2018-05-05 20:36 | disposition home or self-care (01) ==
LOC: ER 17:33
DX: K21.9 Gastro-esophageal reflux disease without esophagitis (principal); R07.89 Other chest pain; R10.13 Epigastric pain; R11.2 Nausea with vomiting, unspecified; E83.42 Hypomagnesemia; Z87.440 Personal history of urinary (tract) infections; Z88.6 Allergy status to analgesic agent
CPT/HCPCS: 36415; 71046; 80048; 80076; 80307; 81001; 81025; 82550; 83735; 84443; 84484; 85025; 85379; 85610; 85730; 87086; 93005; 96360; 99285; J7120; G0479

== ENCOUNTER 2018-12-20 08:57 | Emergency (ER) | payer OTHER ==
[~2018-12-20] VITALS: Ht 175.3 cm; Wt 90.3 kg
[~2018-12-20 08:57] MED LIST changes: +FAMO-63 PO
[2018-12-20 09:41] LABS: BASO # 0.1 x10^3/uL (0.0-0.2); BASO % 1 % (0-3); EOS # 0.1 x10^3/uL (0.0-0.7); EOS % 1 % (0-3); HEMATOCRIT 40.4 % (36.0-47.0); HEMOGLOBIN 13.9 g/dL (12.0-15.5); LYMPH # 1.2 x10^3/uL (1.0-4.8); LYMPH % 15 % (24-48); MEAN CORPUSCULAR HEMOGLOBIN 28 pg (25-35); MEAN CORPUSCULAR HGB CONC 34 g/dL (31-37); MEAN CORPUSCULAR VOLUME 82 fL (79-100); MONO # 0.4 x10^3/uL (0.0-1.1); MONO % 6 % (0-9); NEUT % 77 % (31-73); PLATELET COUNT 332 x10^3/uL (140-400); RED BLOOD COUNT 4.94 x10^6/uL (3.50-5.40); RED CELL DISTRIBUTION WIDTH 13.6 % (11.5-14.5); WHITE BLOOD COUNT 7.7 x10^3/uL (4.0-11.0)
[2018-12-20 10:00] LABS: ALBUMIN 3.2 g/dL (3.4-5.0); ALBUMIN/GLOBULIN RATIO 0.8 (1.0-1.7); CALCIUM 9.2 mg/dL (8.5-10.1); CREATININE 0.8 mg/dL (0.6-1.0); GFR 88.1; POTASSIUM 3.9 mmol/L (3.5-5.1); TOTAL BILIRUBIN 0.6 mg/dL (0.2-1.0); TOTAL PROTEIN 7.1 g/dL (6.4-8.2)
--- NOTE | 2018-12-20 11:31 | PHYS DOC ---
Past History Past Medical History: IBS, UTI Past Surgical History: Tonsillectomy Alcohol Use: Rarely Drug Use: None Adult General Chief Complaint Chief Complaint: MULTIPLE COMPLAINTS [facility] HPI Patient is a 23-year-old female who states she is approximately 7 weeks with no care as of yet presents with a variety of complaints. She states she has bilateral ear pain sore throat general malaise and fatigue and some sharp suprapubic pain. She denies any vaginal bleeding or discharge. She denies any dyspareunia. She denies any dysuria or gross hematuria. She states she is not scheduled to see her OB doctor until next month. She denies any fever chills or sweats.[] Review of Systems Review of Systems Constitutional: Denies fever or chills [] Eyes: Denies change in visual acuity, redness, or eye pain [] HENT: Reports sore throat[] Respiratory: Denies cough or shortness of breath [] Cardiovascular: No additional information not addressed in HPI [] GI: Reports sharp stabbing pains in the suprapubic region[] : Denies dysuria or hematuria [] Musculoskeletal: Denies back pain or joint pain [] Integument: Denies rash or skin lesions [] Neurologic: Denies headache, focal weakness or sensory changes [] Endocrine: Denies polyuria or polydipsia [] All other systems were reviewed and found to be within normal limits, except as documented in this note. Allergies Allergies Allergies Coded Allergies Type Severity Reaction Last Updated Verified ketoprofen Allergy Intermediate 07/22/17 Yes Physical Exam Physical Exam Constitutional: Well developed, well nourished, no acute distress, non-toxic appearance. [] HENT: Normocephalic, atraumatic, bilateral external ears normal, TMs are clear, posterior pharynx is erythematous there is no cobblestoning or exudate on the tonsils. [] Eyes: PERRLA, EOMI, conjunctiva normal, no discharge. [] Neck: Normal range of motion, no tenderness, supple, no stridor. [] Cardiovascular:Heart rate regular rhythm, no murmur [] Lungs & Thorax: Bilateral breath sounds clear to auscultation [] Abdomen: Bowel sounds normal, soft, no tenderness, no masses, no pulsatile m asses. [] Skin: Warm, dry, no erythema, no rash. [] Back: No tenderness, no CVA tenderness. [] Extremities: No tenderness, no cyanosis, no clubbing, ROM intact, no edema. [] Neurologic: Alert and oriented X 3, normal motor function, normal sensory function, no focal deficits noted. [] Psychologic: Anxious[] Current Patient Data Vital Signs Vital Signs Date Time Temp Pulse Resp B/P (MAP) Pulse Ox O2 Delivery O2 Flow Rate FiO2 12/20/18 09:10 98.3 94 20 97 Room Air Lab Results Laboratory Tests Test 12/20/18 09:30 12/20/18 09:50 White Blood Count 7.7 x10^3/uL (4.0-11.0) Red Blood Count 4.94 x10^6/uL (3.50-5.40) Hemoglobin 13.9 g/dL (12.0-15.5) Hematocrit 40.4 % (36.0-47.0) Mean Corpuscular Volume 82 fL (79-100) Mean Corpuscular Hemoglobin 28 pg (25-35) Mean Corpuscular Hemoglobin Concent 34 g/dL (31-37) Red Cell Distribution Width 13.6 % (11.5-14.5) Platelet Count 332 x10^3/uL (140-400) Neutrophils (%) (Auto) 77 % (31-73) H Lymphocytes (%) (Auto) 15 % (24-48) L Monocytes (%) (Auto) 6 % (0-9) Eosinophils (%) (Auto) 1 % (0-3) Basophils (%) (Auto) 1 % (0-3) Neutrophils # (Auto) 6.0 x10^3uL (1.8-7.7) Lymphocytes # (Auto) 1.2 x10^3/uL (1.0-4.8) Monocytes # (Auto) 0.4 x10^3/uL (0.0-1.1) Eosinophils # (Auto) 0.1 x10^3/uL (0.0-0.7) Basophils # (Auto) 0.1 x10^3/uL (0.0-0.2) Maternal Serum HCG Beta Subunit 70530 mIU/mL (0-6) H Sodium Level 138 mmol/L (136-145) Potassium Level 3.9 mmol/L (3.5-5.1) Chloride Level 103 mmol/L (98-107) Carbon Dioxide Level 25 mmol/L (21-32) Anion Gap 10 (6-14) Blood Urea Nitrogen 8 mg/dL (7-20) Creatinine 0.8 mg/dL (0.6-1.0) Estimated GFR (Cockcroft-Gault) 88.1 BUN/Creatinine Ratio 10 (6-20) Glucose Level 82 mg/dL (70-99) Calcium Level 9.2 mg/dL (8.5-10.1) Total Bilirubin 0.6 mg/dL (0.2-1.0) Aspartate Amino Transferase (AST) 13 U/L (15-37) L Alanine Aminotransferase (ALT) 13 U/L (14-59) L Alkaline Phosphatase 65 U/L (46-116) Total Protein 7.1 g/dL (6.4-8.2) Albumin 3.2 g/dL (3.4-5.0) L Albumin/Globulin Ratio 0.8 (1.0-1.7) L Group A Streptococcus Rapid Negative (NEGATIVE) EKG EKG [] Radiology/Procedures Radiology/Procedures [] Impressions: STATUS: REG ER ORD. PHYSICIAN: SANDY GUY DO REASON: pain in preg PROCEDURE: OB <14 WKS W/TV OB <14 WKS W/TV Clinical Indication: Pain in . Right lower quadrant pain x4 days. Comparison: None. TECHNIQUE: Real-time ultrasound imaging of the pelvis using transabdominal and transvaginal window is performed. Findings: Please note the ultrasound software incompletely calculated some of the values. For example fetus A estimated sonographic gestational age did not combine the gestational sac diameter and the crown-rump length. Only gestational age based on the gestational sac diameter is reported. Anteverted uterus. Uterus length measures 11.4 x 6.4 cm. There are 2 adjacent intrauterine gestational sacs. Contour is smooth. No perigestational hemorrhage is seen. Fetus A: Gestational sac contains a yolk sac and pole. Mean gestational sac diameter 2.2 cm, 7 weeks and 1 day. [place]-rump length 0.6 cm, 6 weeks and 3 days. Estimated heart rate 124-130 bpm. EDC ultrasound is 08/07/2019. This date is recorded on the worksheet but is not displayed on the provided images. Fetus B: In the gestational sac a yolk sac and pole are identified. Mean gestational sac diameter 2 cm. Gestational age value is not calculated. [place]-rump length 0.5 cm, 6 weeks and 1 day. EDC ultrasound is August 15, 2019. This date is recorded on the worksheet but is not displayed on the provided images. There is normal blood flow in the maternal ovaries. There is a right ovary functional cyst measuring up to 1.9 cm. Ovaries are similar in size. There is simple cul-de-sac free fluid. IMPRESSION: 1. Please note ultrasound software incompletely calculated some of the values. Gestational age values may be slightly off. Please see above discussion. 2. Twin live intrauterine gestation. Fetus A approximate sonographic gestational age is 7 weeks and 1 day. Fetus B approximately sonographic gestational age is 6 weeks and 1 day. 3. Mild cul-de-sac free fluid. 4. Small right ovary functional cyst. Course & Med Decision Making Course & Med Decision Making Pertinent Labs and Imaging studies reviewed. (See chart for details) [ED course: Evaluation reveals a 23-year-old who presented with multiple complaints as described above. She did have some lower abdominal pain. An ultrasound was performed which identified twins. This was discussed with the patient. She reiterated that she's had no vaginal bleeding or discharge. I've encouraged her to follow with her OB doctor either this week or early next week. She states she would call and make that appointment. I've let her know that there are no other concerning findings and her laboratory studies including her urinalysis.] Dragon Disclaimer Dragon Disclaimer This electronic medical record was generated, in whole or in part, using a voice recognition dictation system. Departure Departure: Impression: Primary Impression: Abdominal pain affecting Disposition: 01 HOME, SELF-CARE Condition: IMPROVED Referrals: BRENDA WEST DO (PCP) Patient Instructions: Abdominal Pain During Additional Instructions: Follow with your OB doctor this week for recheck. Return to the emergency department with any new or concerning symptoms SANDY GUY DO December 20, 2018 11:31
[2018-12-20 11:41] LABS: BILIRUBIN,URINE NEG (NEG); CLARITY,URINE CLEAR; COLOR,URINE STRAW; GLUCOSE,URINE NEG (NEG)
[2018-12-20 11:42] LABS: BACTERIA,URINE 0 /HPF (0-FEW); NITRITE,URINE NEG (NEG); RBC,URINE 0 /HPF (0-2); SQUAMOUS EPITHELIAL CELL,UR OCC /LPF; UROBILINOGEN,URINE 0.2 mg/dL (0.2 mg/dL); WBC,URINE 0 /HPF (0-4)
--- NOTE | 2018-12-20 12:28 | RAD ---
OB <14 WKS W/TV Clinical Indication: Pain in . Right lower quadrant pain x4 days. Comparison: None. TECHNIQUE: Real-time ultrasound imaging of the pelvis using transabdominal and transvaginal window is performed. Findings: Please note the ultrasound software incompletely calculated some of the values. For example fetus A estimated sonographic gestational age did not combine the gestational sac diameter and the crown-rump length. Only gestational age based on the gestational sac diameter is reported. Anteverted uterus. Uterus length measures 11.4 x 6.4 cm. There are 2 adjacent intrauterine gestational sacs. Contour is smooth. No perigestational hemorrhage is seen. Fetus A: Gestational sac contains a yolk sac and pole. Mean gestational sac diameter 2.2 cm, 7 weeks and 1 day. [place]-rump length 0.6 cm, 6 weeks and 3 days. Estimated heart rate 124-130 bpm. EDC ultrasound is 08/07/2019. This date is recorded on the worksheet but is not displayed on the provided images. Fetus B: In the gestational sac a yolk sac and pole are identified. Mean gestational sac diameter 2 cm. Gestational age value is not calculated. [place]-rump length 0.5 cm, 6 weeks and 1 day. EDC ultrasound is August 15, 2019. This date is recorded on the worksheet but is not displayed on the provided images. There is normal blood flow in the maternal ovaries. There is a right ovary functional cyst measuring up to 1.9 cm. Ovaries are similar in size. There is simple cul-de-sac free fluid. IMPRESSION: 1. Please note ultrasound software incompletely calculated some of the values. Gestational age values may be slightly off. Please see above discussion. 2. Twin live intrauterine gestation. Fetus A approximate sonographic gestational age is 7 weeks and 1 day. Fetus B approximately sonographic gestational age is 6 weeks and 1 day. 3. Mild cul-de-sac free fluid. 4. Small right ovary functional cyst. Electronically signed by: Jose Luis Zavala MD (12/20/2018 12:25 PM) [id number]
[2018-12-20 12:35] VITALS: BP 124/81
== END 2018-12-20 12:30 | disposition home or self-care (01) ==
LOC: ER 08:57
DX: O34.81 Maternal care for other abnormalities of pelvic organs, first trimester (principal); N83.201 Unspecified ovarian cyst, right side; H92.03 Otalgia, bilateral; O23.41 Unspecified infection of urinary tract in pregnancy, first trimester; Z3A.01 Less than 8 weeks gestation of pregnancy; Z88.8 Allergy status to other drugs, medicaments and biological substances
CPT/HCPCS: 36415; 76801; 76817; 80053; 81001; 84702; 85025; 87070; 87880; 99285

== ENCOUNTER 2019-02-18 19:56 | Emergency (ER) | payer OTHER ==
[~2019-02-18] VITALS: Ht 175.3 cm; Wt 89.3 kg
[2019-02-18] MEDS ORDERED: FAMOTIDINE 20 MG/2 ML VIAL IVP ONE (20:15)
[2019-02-18] MEDS ORDERED: ONDANSETRON PF 4 MG/2 ML VIAL. IV ONE (20:15)
[2019-02-18] MEDS ORDERED: IV NORMAL SALINE 1,000ML 1,000 ML IV ONE (20:15)
[2019-02-18 20:40] LABS: BACTERIA,URINE 0 /HPF (0-FEW); BILIRUBIN,URINE NEG (NEG); CLARITY,URINE HAZY; COLOR,URINE YELLOW; GLUCOSE,URINE NEG (NEG); NITRITE,URINE NEG (NEG); RBC,URINE 0 /HPF (0-2); SQUAMOUS EPITHELIAL CELL,UR OCC /LPF; UROBILINOGEN,URINE 1 mg/dL (0.2 mg/dL); WBC,URINE 0 /HPF (0-4)
[2019-02-18 20:43] LABS: BASO % 1 % (0-3); EOS # 0.1 x10^3/uL (0.0-0.7); EOS % 1 % (0-3); HEMATOCRIT 39.9 % (36.0-47.0); HEMOGLOBIN 13.4 g/dL (12.0-15.5); LYMPH # 1.3 x10^3/uL (1.0-4.8); LYMPH % 16 % (24-48); MEAN CORPUSCULAR HEMOGLOBIN 28 pg (25-35); MEAN CORPUSCULAR HGB CONC 34 g/dL (31-37); MEAN CORPUSCULAR VOLUME 84 fL (79-100); MONO # 0.4 x10^3/uL (0.0-1.1); MONO % 5 % (0-9); NEUT # 6.1 x10^3uL (1.8-7.7); NEUT % 77 % (31-73); PLATELET COUNT 288 x10^3/uL (140-400); RED BLOOD COUNT 4.73 x10^6/uL (3.50-5.40); RED CELL DISTRIBUTION WIDTH 14.2 % (11.5-14.5); WHITE BLOOD COUNT 7.9 x10^3/uL (4.0-11.0)
[2019-02-18 20:56] LABS: ALBUMIN 2.8 g/dL (3.4-5.0); ALBUMIN/GLOBULIN RATIO 0.7 (1.0-1.7); CALCIUM 9.3 mg/dL (8.5-10.1); CREATININE 0.6 mg/dL (0.6-1.0); GFR 121.8; MAGNESIUM 1.9 mg/dL (1.8-2.4); POTASSIUM 3.5 mmol/L (3.5-5.1); TOTAL BILIRUBIN 0.4 mg/dL (0.2-1.0); TOTAL PROTEIN 6.8 g/dL (6.4-8.2)
[2019-02-18] MEDS ORDERED: FAMO-63 PO (22:07)
[2019-02-18] MEDS ORDERED: ONDA4TAB12 PO (22:07)
--- NOTE | 2019-02-18 22:07 | PHYS DOC ---
Past History Past Medical History: IBS, UTI Past Surgical History: Tonsillectomy Alcohol Use: Rarely Drug Use: None Adult General Chief Complaint Chief Complaint: ABDOMINAL PAIN HPI HPI 24 y/o female presents at 15 weeks gestation with upper abdominal pain. Patient reports pain as an ache. Denies vomiting or diarrhea. Reports some nausea. Reports however patient reports known current twin gestation with 1 demise for which patient has been following closely with [facility]. Denies lower pelvic pain or cramping. Denies vaginal discharge or bleeding. Denies fever/chills. Denies known sick contacts. Review of Systems Review of Systems Constitutional: Denies fever or chills Eyes: Denies change in visual acuity, redness, or eye pain HENT: Denies nasal congestion or sore throat Respiratory: Denies cough or shortness of breath Cardiovascular: Denies chest pain or palpitations GI: Reports upper abdominal pain and nausea; denies vomiting or diarrhea : Denies dysuria or hematuria; reports with twin gestation and 1 demise Musculoskeletal: Denies back pain or joint pain Integument: Denies rash or skin lesions Neurologic: Denies headache, focal weakness or sensory changes Complete systems were reviewed and found to be within normal limits, except as documented in this note. Current Medications Current Medications Current Medications Medications (Trade) Dose Ordered Sig/Tess Start Time Stop Time Status Last Admin Dose Admin Famotidine (Pepcid Vial) 20 mg 1X ONCE 02/18/19 20:15 02/18/19 20:16 DC 02/18/19 21:27 20 MG Ondansetron HCl (Zofran) 4 mg 1X ONCE 02/18/19 20:15 02/18/19 20:16 DC 02/18/19 21:27 4 MG Sodium Chloride 1,000 ml @ 1,000 mls/hr 1X ONCE 02/18/19 20:15 02/18/19 21:14 DC 02/18/19 21:27 1,000 MLS/HR Allergies Allergies Allergies Coded Allergies Type Severity Reaction Last Updated Verified ketoprofen Allergy Intermediate 07/22/17 Yes Physical Exam Physical Exam Constitutional: Well developed, well nourished, no acute distress, non-toxic appearance HENT: Normocephalic, atraumatic, oropharynx moist, nose normal Eyes: Conjunctiva normal, no discharge Neck: Normal range of motion, no tenderness, supple, no meningeal signs Cardiovascular: Heart rate normal and regular rhythm Lungs & Thorax: Bilateral breath sounds clear to auscultation, no respiratory distress Abdomen: Soft, epigastric tenderness Skin: Warm, dry, no erythema, no rash Back: No tenderness, no CVA tenderness Extremities: No tenderness, ROM intact, no edema Neurologic: Alert and oriented X 3, no focal deficits noted Psychologic: Affect normal, judgement normal, mood normal Current Patient Data Vital Signs Vital Signs Date Time Temp Pulse Resp B/P (MAP) Pulse Ox O2 Delivery O2 Flow Rate FiO2 02/18/19 21:20 69 18 108/43 (64) 100 Room Air 02/18/19 20:12 97.7 Lab Results Laboratory Tests Test 02/18/19 20:20 02/18/19 20:30 Urine Collection Type Unknown Urine Color Yellow Urine Clarity Hazy Urine pH 6.5 Urine Specific [place] >=1.030 Urine Protein Trace (NEG-TRACE) Urine Glucose (UA) Neg mg/dL (NEG) Urine Ketones (Stick) 80 mg/dL (NEG) Urine Blood Neg (NEG) Urine Nitrite Neg (NEG) Urine Bilirubin Neg (NEG) Urine Urobilinogen Dipstick 1 mg/dL (0.2 mg/dL) Urine Leukocyte Esterase Neg (NEG) Urine RBC 0 /HPF (0-2) Urine WBC 0 /HPF (0-4) Urine Squamous Epithelial Cells Occ /LPF Urine Bacteria 0 /HPF (0-FEW) White Blood Count 7.9 x10^3/uL (4.0-11.0) Red Blood Count 4.73 x10^6/uL (3.50-5.40) Hemoglobin 13.4 g/dL (12.0-15.5) Hematocrit 39.9 % (36.0-47.0) Mean Corpuscular Volume 84 fL (79-100) Mean Corpuscular Hemoglobin 28 pg (25-35) Mean Corpuscular Hemoglobin Concent 34 g/dL (31-37) Red Cell Distribution Width 14.2 % (11.5-14.5) Platelet Count 288 x10^3/uL (140-400) Neutrophils (%) (Auto) 77 % (31-73) H Lymphocytes (%) (Auto) 16 % (24-48) L Monocytes (%) (Auto) 5 % (0-9) Eosinophils (%) (Auto) 1 % (0-3) Basophils (%) (Auto) 1 % (0-3) Neutrophils # (Auto) 6.1 x10^3uL (1.8-7.7) Lymphocytes # (Auto) 1.3 x10^3/uL (1.0-4.8) Monocytes # (Auto) 0.4 x10^3/uL (0.0-1.1) Eosinophils # (Auto) 0.1 x10^3/uL (0.0-0.7) Basophils # (Auto) 0.0 x10^3/uL (0.0-0.2) Maternal Serum HCG Beta Subunit 29608 mIU/mL (0-6) H Sodium Level 137 mmol/L (136-145) Potassium Level 3.5 mmol/L (3.5-5.1) Chloride Level 104 mmol/L (98-107) Carbon Dioxide Level 24 mmol/L (21-32) Anion Gap 9 (6-14) Blood Urea Nitrogen 7 mg/dL (7-20) Creatinine 0.6 mg/dL (0.6-1.0) Estimated GFR (Cockcroft-Gault) 121.8 BUN/Creatinine Ratio 12 (6-20) Glucose Level 88 mg/dL (70-99) Calcium Level 9.3 mg/dL (8.5-10.1) Magnesium Level 1.9 mg/dL (1.8-2.4) Total Bilirubin 0.4 mg/dL (0.2-1.0) Aspartate Amino Transferase (AST) 11 U/L (15-37) L Alanine Aminotransferase (ALT) 12 U/L (14-59) L Alkaline Phosphatase 56 U/L (46-116) Total Protein 6.8 g/dL (6.4-8.2) Albumin 2.8 g/dL (3.4-5.0) L Albumin/Globulin Ratio 0.7 (1.0-1.7) L Lipase 180 U/L (73-393) EKG EKG [] Radiology/Procedures Radiology/Procedures PROCEDURE: OB LIMITED Obstetrical ultrasound limited. HISTORY: Abdominal pain Transabdominal ultrasound was performed. There was a twin with the demise of twin B. There is a posterior and fundal placenta without previa. There is a normal amount of amniotic fluid. Complete survey was not performed. movement was noted. Cardiac activity was evident with a rate of 168 beats beats per minute. Fetus was in breech position. Measurements were obtained including biparietal diameter of 3.2 cm corresponding 16 weeks, head circumference of 11.9 cm corresponding is 15 weeks 6 days, abdominal circumference of 10.4 cm corresponding 16 weeks 3 days, femur length of 2.1 cm corresponding 16 weeks 1 day. There is a second twin which is by a membrane. The twin B measures 2.1 cm without a heartbeat consistent with demise. IMPRESSION: 1. Twin A is viable 16 weeks 1 day gestational age on today's study. 2. Twin B consistent with demise. Electronically signed by: Jamie Jackson MD (02/18/2019 10:08 PM) [facility] PROCEDURE: ABDOMEN LTD Ultrasound the abdomen limited. HISTORY: Right upper quadrant pain Ultrasound was used to evaluate the right upper quadrant of the abdomen. Pancreas was normal in appearance, although portions of the head and tail of the pancreas were obscured. Liver was normal in size and appearance without a focal lesion. Gallbladder was normal without gallstones or gallbladder wall thickening. Right kidney was 10.9 cm in length without a mass or hydronephrosis. Common duct was normal measuring 3 mm. Proximal aorta and vena cava were unremarkable. IMPRESSION: 1. No gallstones noted. 2. Normal-appearing liver. Electronically signed by: Jamie Jackson MD (02/18/2019 10:03 PM) [facility] Course & Med Decision Making Course & Med Decision Making Pertinent Labs and Imaging studies reviewed. (See chart for details) Patient presents with upper abdominal pain with associated nausea at approximately 15 weeks gestation with twins with 1 demise. Denies vaginal bleeding or discharge. Symptomatic treatment provided. Labs obtained and posted to chart. US of gallbladder normal. OB US stable with good FHR of viable twin. Patient stable for discharge home with outpatient follow-up with PCP. Discussed findings and plan with patient and family, who acknowledge understanding and agreement. Dragon Disclaimer Dragon Disclaimer This electronic medical record was generated, in whole or in part, using a voice recognition dictation system. Departure Departure: Impression: Primary Impression: Epigastric abdominal pain Additional Impression: Disposition: 01 HOME, SELF-CARE Condition: STABLE Referrals: BRENDA WEST DO (PCP) Patient Instructions: ABCs of , Abdominal Pain During , [id number], Gastritis, Adult, [id number] Scripts Ondansetron (ONDANSETRON ODT) 4 Mg Tab.rapdis 1 TAB PO PRN Q6-8HRS PRN for NAUSEA, #16 TAB Prov: CLEOPATRA AGUIRRE DO 02/18/19 Famotidine (PEPCID) 20 Mg Tablet 1 TAB PO BID for gastritis, #30 TAB Prov: CLEOPATRA AGUIRRE DO 02/18/19 Problem Qualifiers Additional Impression: Weeks of gestation: unspecified Qualified Codes: Z34.90 - Encounter for supervision of normal , unspecified, unspecified trimester CLEOPATRA AGUIRRE DO Feb 18, 2019 22:07
--- NOTE | 2019-02-18 22:11 | RAD ---
Obstetrical ultrasound limited. HISTORY: Abdominal pain Transabdominal ultrasound was performed. There was a twin with the demise of twin B. There is a posterior and fundal placenta without previa. There is a normal amount of amniotic fluid. Complete survey was not performed. movement was noted. Cardiac activity was evident with a rate of 168 beats beats per minute. Fetus was in breech position. Measurements were obtained including biparietal diameter of 3.2 cm corresponding 16 weeks, head circumference of 11.9 cm corresponding is 15 weeks 6 days, abdominal circumference of 10.4 cm corresponding 16 weeks 3 days, femur length of 2.1 cm corresponding 16 weeks 1 day. There is a second twin which is by a membrane. The twin B measures 2.1 cm without a heartbeat consistent with demise. IMPRESSION: 1. Twin A is viable 16 weeks 1 day gestational age on today's study. 2. Twin B consistent with demise. Electronically signed by: Jamie Jackson MD (02/18/2019 10:08 PM) [facility]
[2019-02-18 22:45] VITALS: BP 104/56
== END 2019-02-18 23:05 | disposition home or self-care (01) ==
LOC: ER 19:56
DX: O26.892 Other specified pregnancy related conditions, second trimester (principal); R10.13 Epigastric pain; O02.1 Missed abortion; O23.42 Unspecified infection of urinary tract in pregnancy, second trimester; Z3A.15 15 weeks gestation of pregnancy; Z88.8 Allergy status to other drugs, medicaments and biological substances
CPT/HCPCS: 36415; 76705; 76815; 80053; 81001; 83690; 83735; 84702; 85025; 96374; 96375; 99285; J2405; J3490; J7030

== ENCOUNTER 2019-05-22 11:46 | Emergency (ER) | payer OTHER ==
[~2019-05-22] VITALS: Ht 175.3 cm; Wt 85.3 kg
[~2019-05-22 11:46] MED LIST changes: +ONDA4TAB12 PO
[2019-05-22] MEDS ORDERED: IV NORMAL SALINE 1,000ML 1,000 ML IV ONE (12:15)
--- NOTE | 2019-05-22 12:30 | EKG ---
[address] [address] Test Date: 2019-05-22 Test Time: 12:27:17 Pat Name: VINICIUS CHAVES Department: Room: Gender: F [employer]: GARRETT : 1995 Requested By: CLEOPATRA AGUIRRE Order Number: [id number] Reading MD: Bill Kelsey MD Measurements Intervals [place] Rate: 70 P: 42 [place]: 204 QRS: 74 QRSD: 78 T: 17 QT: 382 QTc: 415 Interpretive Statements SINUS RHYTHM NON-SPECIFIC ST/T CHANGES Electronically Signed On 05-28-2019 11:41:11 CDT by Bill Kelsey MD
[2019-05-22 12:37] LABS: BASO % 1 % (0-3); EOS # 0.1 x10^3/uL (0.0-0.7); EOS % 1 % (0-3); HEMATOCRIT 35.6 % (36.0-47.0); HEMOGLOBIN 12.1 g/dL (12.0-15.5); LYMPH # 1.1 x10^3/uL (1.0-4.8); LYMPH % 15 % (24-48); MEAN CORPUSCULAR HEMOGLOBIN 29 pg (25-35); MEAN CORPUSCULAR HGB CONC 34 g/dL (31-37); MEAN CORPUSCULAR VOLUME 84 fL (79-100); MONO # 0.4 x10^3/uL (0.0-1.1); MONO % 6 % (0-9); NEUT # 5.6 x10^3uL (1.8-7.7); NEUT % 78 % (31-73); PLATELET COUNT 256 x10^3/uL (140-400); RED BLOOD COUNT 4.23 x10^6/uL (3.50-5.40); RED CELL DISTRIBUTION WIDTH 12.9 % (11.5-14.5); WHITE BLOOD COUNT 7.2 x10^3/uL (4.0-11.0)
[2019-05-22] MEDS ORDERED: FAMOTIDINE 20 MG/2 ML VIAL IVP ONE (12:40)
--- NOTE | 2019-05-22 12:42 | PHYS DOC ---
Past History Past Medical History: IBS, UTI Past Surgical History: Tonsillectomy Smoking: Non-smoker Alcohol Use: Rarely Drug Use: None Adult General Chief Complaint Chief Complaint: VOMITING IN HPI HPI 24-year-old female presents at approximately 29 week gestation with report of syncopal episode just prior to arrival. Patient reports this morning had gotten up and subsequently became very nauseated and vomited several times. Patient reports during episode she passed out and woke up with left shoulder and right lower abdomen/pelvic pain. Denies any vaginal bleeding or discharge. Reports has felt the baby move. Reports some continued nausea. Denies headache. Reports neck pain. Patient also reports sensation of decreased peripheral vision in left eye. Denies fever or chills. Review of Systems Review of Systems Constitutional: Denies fever or chills Eyes: Denies redness or eye pain; reports left peripheral vision change HENT: Denies nasal congestion or sore throat Respiratory: Denies cough or shortness of breath Cardiovascular: Denies chest pain or palpitations GI: Reports right abdominal pain, nausea, and vomiting : Denies dysuria or hematuria Musculoskeletal: Reports neck pain Integument: Denies rash or skin lesions Neurologic: Denies headache, focal weakness or sensory changes; reports syncopal episode Complete systems were reviewed and found to be within normal limits, except as documented in this note. Current Medications Current Medications Current Medications Medications (Trade) Dose Ordered Sig/Tess Start Time Stop Time Status Last Admin Dose Admin Famotidine (Pepcid Vial) 20 mg 1X ONCE 05/22/19 12:40 05/22/19 12:41 05/22/19 12:26 20 MG Ondansetron HCl (Zofran) 4 mg 1X ONCE 05/22/19 12:45 05/22/19 12:46 05/22/19 12:25 4 MG Sodium Chloride 1,000 ml @ 1,000 mls/hr 1X ONCE 05/22/19 12:15 05/22/19 13:14 05/22/19 12:25 1,000 MLS/HR Allergies Allergies Allergies Coded Allergies Type Severity Reaction Last Updated Verified ketoprofen Allergy Intermediate 07/22/17 Yes Physical Exam Physical Exam Constitutional: Well developed, well nourished, no acute distress, non-toxic appearance HENT: Normocephalic, atraumatic, oropharynx moist Eyes: PERRL, EOMI, conjunctiva normal, no discharge Neck: Normal range of motion, no midline tenderness, bilateral paraspinal tenderness noted, supple Cardiovascular: Heart rate normal, regular rhythm Lungs & Thorax: Bilateral breath sounds clear to auscultation, no wheezing Abdomen: Soft, no tenderness, gravid uterus Skin: Warm, dry, no erythema, no rash Back: No midline tenderness, no CVA tenderness, right lumbar paraspinal tenderness Extremities: No deformity ROM intact but with some tenderness to left shoulder with extension and abduction of shoulder, no edema Neurologic: Alert and oriented X 3, normal motor function, normal sensory function, no focal deficits noted Psychologic: Affect anxious, judgement normal Current Patient Data Vital Signs Vital Signs Date Time Temp Pulse Resp B/P (MAP) Pulse Ox O2 Delivery O2 Flow Rate FiO2 05/22/19 12:01 98.0 76 16 100 Room Air EKG EKG @1227 NSR at 70bpm, NO ST elevation, QRS 78ms, QT/QTc 382/415ms Radiology/Procedures Radiology/Procedures PROCEDURE: PREG MORE THAN OR EQ TO 14 WKS CLINICAL HISTORY: Abdominal pain COMPARISON: 02/18/2019 TECHNIQUE: Limited transabdominal ultrasound of the uterus was performed. FINDINGS: There is a single live fetus in cephalic position. Cardiac activity is visualized and documented at a rate of 139 beats per minute. The placenta is posterior without placenta previa. The amniotic fluid is normal for gestational stage. The amniotic fluid index is 10.4. Cervical length measures 4.66 cm. Current measurements are: BPD - 7.38 cm = 29 weeks 4 days HC - 27.14 cm = 29 weeks 4 days AC - 25 cm = 29 weeks 2 day FL - 5.52 cm = 29 weeks 1 days The gestational size based on todays measurements is 29 weeks 3 days +/- two weeks. This indicates normal interval growth. The estimated weight is 1360+/- 201 gm. This is at the 52 percentile for the expected gestational age. All measured ratios and indices are within normal limits. The estimated date of delivery is 08/04/2019. IMPRESSION: Single live intrauterine gestation with an estimated gestational age of 29 weeks, 3 days and estimated date of delivery 08/04/2019. Electronically signed by: Keegan Londono MD (05/22/2019 1:47 PM) [facility] Course & Med Decision Making Course & Med Decision Making Pertinent Labs and Imaging studies reviewed. (See chart for details) patient presents in third trimester with report of syncopal episode after nausea and vomiting this morning. Denies any vaginal bleeding or discharge. Denies fever or chills. Patient also complains of some left eye peripheral vision change. Patient appears neurologically intact. Visual acuities stable. Peripheral vision with resolution of prior complaint. No obvious deformities noted. Some left shoulder tenderness with extension and a bduction. Ice applied. Labs obtained and posted to chart. OB ultrasound with IUP with good heart rate. Symptomatic treatment provided including IV fluid hydration with interval improvement of symptoms. Patient stable for discharge with outpatient follow-up with PCP/OB. Discussed findings and plan with patient and family, who acknowledge understanding and agreement. Dragon Disclaimer Dragon Disclaimer This electronic medical record was generated, in whole or in part, using a voice recognition dictation system. Departure Departure: Impression: Primary Impression: Syncope Additional Impressions: Left shoulder strain Nausea and vomiting in Disposition: 01 HOME, SELF-CARE Condition: STABLE Referrals: BRENDA WEST DO (PCP) Patient Instructions: Nausea and Vomiting, [id number], Shoulder Pain, Sevl-[id number], Syncope, [id number] Additional Instructions: ICE areas of discomfort, You may take over the counter Tylenol for pain or discomfort. Scripts Famotidine (PEPCID) 20 Mg Tablet 1 TAB PO BID for Gastritis, #10 TAB Prov: CLEOPATRA AGUIRRE DO 05/22/19 Ondansetron (ONDANSETRON ODT) 4 Mg Tab.rapdis 1 TAB PO PRN Q6-8HRS PRN for NAUSEA, #16 TAB Prov: CLEOPATRA AGUIRRE DO 05/22/19 Problem Qualifiers Primary Impression: Syncope Syncope type: unspecified Qualified Codes: R55 - Syncope and collapse Additional Impressions: Left shoulder strain Encounter type: initial encounter Qualified Codes: S46.912A - Strain of unspecified muscle, fascia and tendon at shoulder and upper arm level, left arm, initial encounter CLEOPATRA AGUIRRE DO May 22, 2019 12:42
[2019-05-22] MEDS ORDERED: ONDANSETRON PF 4 MG/2 ML VIAL. IV ONE (12:45)
[2019-05-22 12:56] LABS: BACTERIA,URINE FEW /HPF (0-FEW); BILIRUBIN,URINE NEG (NEG); CLARITY,URINE CLEAR; COLOR,URINE YELLOW; GLUCOSE,URINE NEG (NEG); NITRITE,URINE NEG (NEG); RBC,URINE 0 /HPF (0-2); SQUAMOUS EPITHELIAL CELL,UR OCC /LPF; UROBILINOGEN,URINE 0.2 mg/dL (0.2 mg/dL); WBC,URINE RARE /HPF (0-4)
[2019-05-22 12:59] LABS: ALBUMIN 2.5 g/dL (3.4-5.0); ALBUMIN/GLOBULIN RATIO 0.6 (1.0-1.7); CALCIUM 8.7 mg/dL (8.5-10.1); CREATININE 0.5 mg/dL (0.6-1.0); GFR 150.3; MAGNESIUM 1.9 mg/dL (1.8-2.4); POTASSIUM 3.9 mmol/L (3.5-5.1); TOTAL BILIRUBIN 0.2 mg/dL (0.2-1.0); TOTAL PROTEIN 6.4 g/dL (6.4-8.2)
--- NOTE | 2019-05-22 13:49 | RAD ---
CLINICAL HISTORY: Abdominal pain COMPARISON: 02/18/2019 TECHNIQUE: Limited transabdominal ultrasound of the uterus was performed. FINDINGS: There is a single live fetus in cephalic position. Cardiac activity is visualized and documented at a rate of 139 beats per minute. The placenta is posterior without placenta previa. The amniotic fluid is normal for gestational stage. The amniotic fluid index is 10.4. Cervical length measures 4.66 cm. Current measurements are: BPD - 7.38 cm = 29 weeks 4 days HC - 27.14 cm = 29 weeks 4 days AC - 25 cm = 29 weeks 2 day FL - 5.52 cm = 29 weeks 1 days The gestational size based on todays measurements is 29 weeks 3 days +/- two weeks. This indicates normal interval growth. The estimated weight is 1360+/- 201 gm. This is at the 52 percentile for the expected gestational age. All measured ratios and indices are within normal limits. The estimated date of delivery is 08/04/2019. IMPRESSION: Single live intrauterine gestation with an estimated gestational age of 29 weeks, 3 days and estimated date of delivery 08/04/2019. Electronically signed by: Keegan Londono MD (05/22/2019 1:47 PM) [facility]
[2019-05-22] MEDS ORDERED: ONDA4TAB12 PO (13:52)
[2019-05-22] MEDS ORDERED: FAMO-63 PO (13:52)
[2019-05-22 14:01] VITALS: BP 100/53
== END 2019-05-22 14:00 | disposition home or self-care (01) ==
LOC: ER 11:46
DX: O9A.213 Injury, poisoning and certain other consequences of external causes complicating pregnancy, third trimester (principal); S46.912A Strain of unspecified muscle, fascia and tendon at shoulder and upper arm level, left arm, initial encounter; R55 Syncope and collapse; O21.9 Vomiting of pregnancy, unspecified; O23.43 Unspecified infection of urinary tract in pregnancy, third trimester; Z3A.29 29 weeks gestation of pregnancy; Z88.8 Allergy status to other drugs, medicaments and biological substances; X58.XXXA Exposure to other specified factors, initial encounter; Y93.89 Activity, other specified; Y92.89 Other specified places as the place of occurrence of the external cause; Y99.8 Other external cause status
CPT/HCPCS: 36415; 76805; 80053; 81001; 83690; 83735; 84702; 85025; 86900; 86901; 87086; 93005; 96361; 96374; 96375; 99285; J2405; J3490; J7030

== ENCOUNTER 2019-06-26 19:17 | Emergency (ER) | payer OTHER ==
[~2019-06-26] VITALS: Ht 175.3 cm; Wt 85.3 kg
--- NOTE | 2019-06-26 19:32 | ED.ADGEN ---
Past History Past Medical History: IBS, UTI Past Surgical History: Tonsillectomy Smoking: Non-smoker Alcohol Use: Rarely Drug Use: None Adult General Chief Complaint Chief Complaint ".. I am 34 weeks gravid.. and I got head cold.. and have started vomiting.. and can't seem to quit... I am vomiting so much.. I am afraid.. I am dehydrated.. and I ve got head ache from all the vomiting..." [facility] HPI Patient is a 24 year old female who presents with above hx and complaints Preg. 34 weeks with hyper emesis gravidarum. Patient states started with plans but one had inter uterine. . No history of vaginal discharge or bleeding. Has been follow-up at [facility] for this . Patient has one previous with no problems. Patient normally follows at [facility]. No recent travel. No history of bad food. Has had a mild nonproductive cough recently. No history of trauma. Patient currently following with Dr. Artis for [employer] and OB. Ultrasound last week showed no acute changes concerns per patient. Review of Systems Review of Systems Constitutional: Denies fever or chills [] Eyes: Denies change in visual acuity, redness, or eye pain [] HENT: She complains of nasal congestion and sore throat [] Respiratory: Denies cough or shortness of breath [] Cardiovascular: No additional information not addressed in HPI [] GI: Denies abdominal pain. She and complaints of nausea, vomiting,. Patient denies bloody stools or diarrhea [] : Denies dysuria or hematuria [] Musculoskeletal: Denies back pain or joint pain [] Integument: Denies rash or skin lesions [] Neurologic: Complaints of headache after dry heaving, no focal weakness or sensory changes [] Endocrine: Denies polyuria or polydipsia [] All other systems were reviewed and found to be within normal limits, except as documented in this note. Family History Family History Noncontributory Current Medications Current Medications Current Medications Medications (Trade) Dose Ordered Sig/Tess Start Time Stop Time Status Last Admin Dose Admin Acetaminophen (Tylenol) 500 mg STK-MED ONCE 06/26/19 22:24 06/26/19 22:25 DC Cephalexin HCl (Keflex) 500 mg 1X ONCE 06/26/19 22:15 06/26/19 22:16 DC 06/26/19 22:26 500 MG Famotidine (Pepcid Vial) 20 mg 1X ONCE 06/26/19 20:30 06/26/19 20:33 DC 06/26/19 21:10 20 MG Lactated Ringer's 1,000 ml @ 1,000 mls/hr Q1H 06/26/19 20:24 06/26/19 21:23 DC 06/26/19 21:10 1,000 MLS/HR Ondansetron HCl (Zofran) 8 mg 1X ONCE 06/26/19 20:30 06/26/19 20:33 DC 06/26/19 21:10 8 MG Allergies Allergies Allergies Coded Allergies Type Severity Reaction Last Updated Verified ketoprofen Allergy Intermediate 07/22/17 Yes Physical Exam Physical Exam Constitutional: Well developed, well nourished, moderate acute distress, non- toxic appearance. [] HENT: Normocephalic, atraumatic, bilateral external ears normal, oropharynx dry, no oral exudates, nose normal. [] Eyes: PERRLA, EOMI, conjunctiva normal, no discharge. [] Neck: Normal range of motion, no tenderness, supple, no stridor. [] Cardiovascular:Heart rate regular rhythm, no murmur [] Lungs & Thorax: Bilateral breath sounds equal at apex on auscultation [] Abdomen: Bowel sounds normal, soft, mild epigastric tenderness, no masses, no pulsatile masses. heart [id number]. No focal rebound. Skin: Warm, dry, no erythema, no rash. [] Back: No tenderness, no CVA tenderness. [] Extremities: No tenderness, no cyanosis, no clubbing, ROM intact, no edema. No psoas sign. Neurologic: Alert and oriented X 3, normal motor function, normal sensory function, no focal deficits noted. []DTRs are +2 at patella and brachial. No drift. Ambulatory without problems. Psychologic: Affect anxious, judgement normal, mood normal. [] Current Patient Data Vital Signs Vital Signs Date Time Temp Pulse Resp B/P (MAP) Pulse Ox O2 Delivery O2 Flow Rate FiO2 06/26/19 23:17 57 15 95/55 (68) 97 Room Air 06/26/19 19:37 97.4 Lab Results Laboratory Tests Test 06/26/19 19:38 06/26/19 19:50 06/26/19 20:50 06/26/19 21:05 Urine Collection Type Unknown Urine Color Yellow Urine Clarity Hazy Urine pH 6.0 Urine Specific [place] 1.010 Urine Protein Neg (NEG-TRACE) Urine Glucose (UA) Neg mg/dL (NEG) Urine Ketones (Stick) Neg mg/dL (NEG) Urine Blood Neg (NEG) Urine Nitrite Neg (NEG) Urine Bilirubin Neg (NEG) Urine Urobilinogen Dipstick 0.2 mg/dL (0.2 mg/dL) Urine Leukocyte Esterase Small (NEG) Urine RBC 0 /HPF (0-2) Urine WBC 1-4 /HPF (0-4) Urine Squamous Epithelial Cells Mod /LPF Urine Bacteria Mod /HPF (0-FEW) Urine Opiates Screen Neg (NEG) Urine Methadone Screen Neg (NEG) Urine Barbiturates Neg (NEG) Urine Phencyclidine Screen Neg (NEG) Urine Amphetamine/Methamphetamine Neg (NEG) Urine Benzodiazepines Screen Neg (NEG) Urine Cocaine Screen Neg (NEG) Urine Cannabinoids Screen Neg (NEG) Urine Ethyl Alcohol Neg (NEG) POC Urine HCG, Qualitative hcg positive (Negative) Influenza Type A (Rapid) Negative (NEGATIVE) Influenza Type B (Rapid) Negative (NEGATIVE) White Blood Count 8.3 x10^3/uL (4.0-11.0) Red Blood Count 4.00 x10^6/uL (3.50-5.40) Hemoglobin 10.9 g/dL (12.0-15.5) L Hematocrit 32.8 % (36.0-47.0) L Mean Corpuscular Volume 82 fL (79-100) Mean Corpuscular Hemoglobin 27 pg (25-35) Mean Corpuscular Hemoglobin Concent 33 g/dL (31-37) Red Cell Distribution Width 13.0 % (11.5-14.5) Platelet Count 251 x10^3/uL (140-400) Neutrophils (%) (Auto) 77 % (31-73) H Lymphocytes (%) (Auto) 13 % (24-48) L Monocytes (%) (Auto) 9 % (0-9) Eosinophils (%) (Auto) 1 % (0-3) Basophils (%) (Auto) 1 % (0-3) Neutrophils # (Auto) 6.4 x10^3uL (1.8-7.7) Lymphocytes # (Auto) 1.1 x10^3/uL (1.0-4.8) Monocytes # (Auto) 0.8 x10^3/uL (0.0-1.1) Eosinophils # (Auto) 0.0 x10^3/uL (0.0-0.7) Basophils # (Auto) 0.0 x10^3/uL (0.0-0.2) Maternal Serum HCG Beta Subunit 9583 mIU/mL (0-6) H Sodium Level 138 mmol/L (136-145) Potassium Level 3.5 mmol/L (3.5-5.1) Chloride Level 102 mmol/L (98-107) Carbon Dioxide Level 26 mmol/L (21-32) Anion Gap 10 (6-14) Blood Urea Nitrogen 3 mg/dL (7-20) L Creatinine 0.6 mg/dL (0.6-1.0) Estimated GFR (Cockcroft-Gault) 121.8 Glucose Level 85 mg/dL (70-99) Calcium Level 8.6 mg/dL (8.5-10.1) Total Bilirubin 0.3 mg/dL (0.2-1.0) Direct Bilirubin 0.1 mg/dL (0.0-0.2) Aspartate Amino Transferase (AST) 13 U/L (15-37) L Alanine Aminotransferase (ALT) 6 U/L (14-59) L Alkaline Phosphatase 104 U/L (46-116) Creatine Kinase 28 U/L (26-192) Total Protein 6.5 g/dL (6.4-8.2) Albumin 2.3 g/dL (3.4-5.0) L EKG EKG [] Radiology/Procedures Radiology/Procedures [] Course & Med Decision Making Course & Med Decision Making Pertinent Labs and Imaging studies reviewed. (See chart for details) Take frequent sips of fluid, must constantly rehydrate. Avoid solids or mild products if actively vomiting. Pt. may take Zofran 4 mg up to 4 times a day for active vomiting. Pt. to follow-up with primary care and ob. The patient is to. take only tylenol for pain. Call OB in a.m. for further recommendations and follow-up. Try kolby drinks or candies, may be helpful for nausea. Continue prenatals. [] Final Impression Final Impression 1. Nausea and vomiting hyperemesis gravidarum-[] 2. Mild anemia 10.9 3. Blood type A neg. ( has had RhoGAM injection) - Father blood type is O + 4. [facility] [place] = [id number] Dragon Disclaimer Dragon Disclaimer This electronic medical record was generated, in whole or in part, using a voice recognition dictation system. Dragon Disclaimer This chart was dictated in whole or in part using Voice Recognition software in a busy, high-work load, and often noisy Emergency Department environment. It may contain unintended and wholly unrecognized errors or omissions. Dragon Disclaimer This chart was dictated in whole or in part using Voice Recognition software in a busy, high-work load, and often noisy Emergency Department environment. It may contain unintended and wholly unrecognized errors or omissions. MELIA WANG MD Jun 26, 2019 19:32
[2019-06-26 20:17] LABS: BARBITURATES NEG (NEG); BENZODIAZEPINES NEG (NEG); CANNABINOIDS NEG (NEG); COCAINE NEG (NEG); METHADONE NEG (NEG); OPIATES NEG (NEG); PHENCYCLIDINE NEG (NEG)
[2019-06-26 20:20] LABS: AMPHETAMINE/METHAMPHETAMINE NEG (NEG)
[2019-06-26] MEDS ORDERED: IV RINGERS SOLUTION,LACTATED 1,000 ML IV SCH (20:24)
[2019-06-26 20:29] LABS: BILIRUBIN,URINE NEG (NEG); CLARITY,URINE HAZY; COLOR,URINE YELLOW; GLUCOSE,URINE NEG (NEG)
[2019-06-26 20:30] LABS: BACTERIA,URINE MOD /HPF (0-FEW); NITRITE,URINE NEG (NEG); RBC,URINE 0 /HPF (0-2); SQUAMOUS EPITHELIAL CELL,UR MOD /LPF; UROBILINOGEN,URINE 0.2 mg/dL (0.2 mg/dL)
[2019-06-26] MEDS ORDERED: ONDANSETRON PF 4 MG/2 ML VIAL. IVP ONE (20:30)
[2019-06-26] MEDS ORDERED: FAMOTIDINE 20 MG/2 ML VIAL IVP ONE (20:30)
[2019-06-26 21:20] LABS: INFLUENZA A PATIENT NEGATIVE (NEGATIVE); INFLUENZA B PATIENT NEGATIVE (NEGATIVE)
[2019-06-26 21:37] LABS: BASO % 1 % (0-3); EOS % 1 % (0-3); HEMATOCRIT 32.8 % (36.0-47.0); HEMOGLOBIN 10.9 g/dL (12.0-15.5); LYMPH # 1.1 x10^3/uL (1.0-4.8); LYMPH % 13 % (24-48); MEAN CORPUSCULAR HEMOGLOBIN 27 pg (25-35); MEAN CORPUSCULAR HGB CONC 33 g/dL (31-37); MEAN CORPUSCULAR VOLUME 82 fL (79-100); MONO # 0.8 x10^3/uL (0.0-1.1); MONO % 9 % (0-9); NEUT # 6.4 x10^3uL (1.8-7.7); NEUT % 77 % (31-73); PLATELET COUNT 251 x10^3/uL (140-400); WHITE BLOOD COUNT 8.3 x10^3/uL (4.0-11.0)
[2019-06-26 21:48] LABS: ALBUMIN 2.3 g/dL (3.4-5.0); CALCIUM 8.6 mg/dL (8.5-10.1); CREATININE 0.6 mg/dL (0.6-1.0); DIRECT BILIRUBIN 0.1 mg/dL (0.0-0.2); GFR 121.8; POTASSIUM 3.5 mmol/L (3.5-5.1); TOTAL BILIRUBIN 0.3 mg/dL (0.2-1.0); TOTAL PROTEIN 6.5 g/dL (6.4-8.2)
[2019-06-26] MEDS ORDERED: CEPHALEXIN 250 MG CAPSULE PO ONE (22:15)
[2019-06-26] MEDS ORDERED: ONDA8TAB9 PO (22:19)
[2019-06-26] MEDS ORDERED: CEPH-264 PO (22:19)
[2019-06-26] MEDS ORDERED: ACETAMINOPHEN 500 MG TABLET PO ONE ×2 (22:24→22:30)
[2019-06-26 23:17] VITALS: BP 95/55
== END 2019-06-26 23:31 | disposition home or self-care (01) ==
LOC: ER 19:17
DX: O21.0 Mild hyperemesis gravidarum (principal); O99.013 Anemia complicating pregnancy, third trimester; O23.43 Unspecified infection of urinary tract in pregnancy, third trimester; Z3A.34 34 weeks gestation of pregnancy; Z88.8 Allergy status to other drugs, medicaments and biological substances
CPT/HCPCS: 36415; 80048; 80076; 80307; 81001; 81025; 82550; 84702; 85025; 87086; 87804; 96361; 96374; 96375; 99284; J2405; J3490; J7120

== ENCOUNTER 2019-10-02 19:39 | Emergency (ER) | payer OTHER ==
[~2019-10-02] VITALS: Ht 175.3 cm; Wt 89.3 kg
[~2019-10-02 19:39] MED LIST changes: +CEPH-264 PO; +ONDA8TAB9 PO
--- NOTE | 2019-10-02 19:50 | PHYS DOC ---
Past History Past Medical History: IBS, UTI Past Surgical History: Tonsillectomy Smoking: Non-smoker Alcohol Use: Rarely Drug Use: None Adult General Chief Complaint Chief Complaint: ".. I had a tubal ligation or removal at [facility] today.. Dr. Artis.. and now my shoulder hurts..here on Rt.... it been constant all day...". HPI HPI Patient is a 24 year old female who presents with above hx and complaints of chest pain and right shoulder pain. Pain is localized to the muscular area right shoulder and upper chest. Pain is reproduced with palpation. Distal neurovascular intact. Pain has been constant discomfort since discharge from [facility] earlier today. Patient discharged from [facility] after tubal ligation by Dr. Artis. Has concerned because she has a strong family history cardiac disease with family members. Patient does have a history of prior episodes of syncope and previous cardiac workups. No etiology of her prior episodes of syncope. Prior c ardiac evaluations have been negative. Suture sites appear to be stable. . Has no obvious bleeding. Mild generalized abdomen tenderness. Patient normally follows at [facility] for care. Review of Systems Review of Systems Constitutional: Denies fever or chills [] Eyes: Denies change in visual acuity, redness, or eye pain [] HENT: Denies nasal congestion or sore throat [] Respiratory: Denies cough or shortness of breath [] Cardiovascular: No additional information not addressed in HPI [] GI: Complains of mild abdominal pain, nausea,. Denies vomiting, bloody stools or diarrhea [] : Denies dysuria or hematuria [] Musculoskeletal: Complains of right upper chest and right shoulder deltoid muscle tenderness Integument: Denies rash or skin lesions [] Neurologic: Denies headache, focal weakness or sensory changes [] Endocrine: Denies polyuria or polydipsia [] All other systems were reviewed and found to be within normal limits, except as documented in this note. Family History Family History Grandfather had a coronary artery bypass, father history of [place], mother had a history of coronary artery disease, grandmother had history of cardiac disease . Dad says cardiac problem started at age 25. Current Medications Current Medications See nursing for home meds Allergies Allergies Allergies Coded Allergies Type Severity Reaction Last Updated Verified ketoprofen Allergy Intermediate 07/22/17 Yes Physical Exam Physical Exam Constitutional: Mild distress, non-toxic appearance. [] HENT: Normocephalic, atraumatic, bilateral external ears normal, oropharynx moist, no oral exudates, nose normal. [] Eyes: PERRLA, EOMI, conjunctiva normal, no discharge. Glasses Neck: Normal range of motion, no tenderness, supple, no stridor. [] Cardiovascular:Heart rate regular rhythm, no murmur [] Lungs & Thorax: Bilateral breath sounds with apex auscultation []mild upper right pictorial tenderness on palpation. Abdomen: Bowel sounds decreased, soft, mild generalized tenderness, no masses, no pulsatile masses. Distended and tympanic. Suture lines stable Skin: Warm, dry, no erythema, no rash. [] Back: No tenderness, no CVA tenderness. [] Extremities: No tenderness, no cyanosis, no clubbing, ROM intact, no edema. [] No psoas sign. No cording. Neurologic: Alert and oriented X 3, normal motor function, normal sensory function, no focal deficits noted. [] Psychologic: Affect anxious, judgement normal, mood normal. [] EKG EKG My interpretation EKG shows a sinus rhythm at 82 bpm. There is some bimodal P- wave's and findings of right ventricular hypertrophy, some nonspecific ST changes. But no findings acute STEMI of contralateral changes. [] Radiology/Procedures Radiology/Procedures [][place] [address] IMAGING REPORT Signed PATIENT: VINICIUS CHAVES ACCOUNT: [id number] : 1995 LOCATION: ER AGE: 24 SEX: F EXAM STATUS: REG ER ORD. PHYSICIAN: MELIA WANG MD REASON: pain, had tubal ligation out pt. at [facility] this morning PROCEDURE: ABDOMEN SUPINE & UPRIGHT EXAM: CHEST PA LATERAL, ABDOMEN SUPINE UPRIGHT INDICATION: Pain. Had tubal ligation as outpatient this morning. TECHNIQUE: PA and lateral views COMPARISON: None FINDINGS: The heart size is normal. The great vessels appear unremarkable. There is no hilar or mediastinal mass. The lungs are clear. There is no pleural effusion or pneumothorax. There are no significant osseous abnormalities. Small amount of free air under the diaphragms IMPRESSION: Free air under the diaphragms is consistent with recent abdominal surgery. No active cardiopulmonary disease. PROCEDURE: CHEST PA LATERAL, ABDOMEN SUPINE UPRIGHT STUDY DATE: 10/02/19 CLINICAL INDICATION / HISTORY: abdominal pain . TECHNIQUE: Single AP image of the abdomen was obtained. COMPARISON: none FINDINGS: The lung bases are clear. A nonobstructive bowel gas pattern is present. There is large stool in the bowel. No organomegaly or pathologic calcifications are identified. No acute osseous abnormality.Some free air is present in the right upper quadrant. IMPRESSION: Constipation and evidence of recent bowel surgery. Electronically signed by: Shu Boyle MD (10/02/2019 10:55 PM) [facility] DICTATED AND SIGNED BY: SHU BOYLE MD DATE: 10/02/19 [id number] CC: MELIA WANG MD; PCP,UNKNOWN ~ Course & Med Decision Making Course & Med Decision Making Pertinent Labs and Imaging studies reviewed. (See chart for details) Patient declined further workup or admission at this time. States she will follow-up with her primary care and Dr. Artis. Encouraged patient to call Dr. Artis for a closer follow-up. Patient encourage patient to return if any conc erns. Patient exhibits UCAR capacity. Aware of risk of discharge with out serial enzymes or extended observation. Recommend patient stay on a clear fluid diet. Patient encourage return anytime if she wishes to complete a cardiac admission and serial exams. Recommend patient keep follow-up with cardiology. Explained to patient my concerns because of family history and her past history of cardiac issues. Patient however insistent on discharge at this time. Does have findings of free air under diaphragm which may be in part caused of referred pain to right shoulder. Impression- 1. Abdomen pain recent tubal ligation 2. Constipation 3. Musculoskeletal discomfort right shoulder upper pectoralis area [] Dragon Disclaimer Dragon Disclaimer This electronic medical record was generated, in whole or in part, using a voice recognition dictation system. Departure Departure: Disposition: 01 HOME/RESIDENCE PRIOR TO ADM Condition: STABLE Referrals: PCP,UNKNOWN (PCP) [place] Disclaimer This chart was dictated in whole or in part using Voice Recognition software in a busy, high-work load, and often noisy Emergency Department environment. It may contain unintended and wholly unrecognized errors or omissions. MELIA WANG MD Oct 02, 2019 19:50
[2019-10-02] MEDS ORDERED: IV RINGERS SOLUTION,LACTATED 1,000 ML IV SCH (20:32)
[2019-10-02 21:59] LABS: U PREG PATIENT NEGATIVE (NEG)
[2019-10-02 22:02] LABS: BARBITURATES NEG (NEG); BENZODIAZEPINES NEG (NEG); CANNABINOIDS NEG (NEG); COCAINE NEG (NEG); METHADONE NEG (NEG); OPIATES POS (NEG); PHENCYCLIDINE NEG (NEG)
[2019-10-02 22:03] LABS: BACTERIA,URINE 0 /HPF (0-FEW); BILIRUBIN,URINE NEG (NEG); CLARITY,URINE CLEAR; COLOR,URINE YELLOW; GLUCOSE,URINE 100 mg/dL (NEG); NITRITE,URINE NEG (NEG); SQUAMOUS EPITHELIAL CELL,UR OCC /LPF; UROBILINOGEN,URINE 0.2 mg/dL (0.2 mg/dL); WBC,URINE 0 /HPF (0-4)
[2019-10-02 22:10] LABS: AMPHETAMINE/METHAMPHETAMINE NEG (NEG)
--- NOTE | 2019-10-02 22:10 | EKG ---
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
[2019-10-02 22:11] LABS: BASO % 0 % (0-3); EOS % 0 % (0-3); HEMATOCRIT 38.1 % (36.0-47.0); HEMOGLOBIN 12.2 g/dL (12.0-15.5); LYMPH # 0.6 x10^3/uL (1.0-4.8); LYMPH % 8 % (24-48); MEAN CORPUSCULAR HEMOGLOBIN 25 pg (25-35); MEAN CORPUSCULAR HGB CONC 32 g/dL (31-37); MEAN CORPUSCULAR VOLUME 78 fL (79-100); MONO # 0.3 x10^3/uL (0.0-1.1); MONO % 4 % (0-9); NEUT # 7.2 x10^3uL (1.8-7.7); NEUT % 88 % (31-73); PLATELET COUNT 418 x10^3/uL (140-400); RED CELL DISTRIBUTION WIDTH 15.6 % (11.5-14.5); WHITE BLOOD COUNT 8.2 x10^3/uL (4.0-11.0)
[2019-10-02 22:18] LABS: CALCIUM 8.6 mg/dL (8.5-10.1); CREATININE 0.8 mg/dL (0.6-1.0); GFR 87.4; POTASSIUM 4.3 mmol/L (3.5-5.1)
[2019-10-02 22:30] LABS: ALBUMIN 3.2 g/dL (3.4-5.0); DIRECT BILIRUBIN 0.1 mg/dL (0.0-0.2); MAGNESIUM 1.9 mg/dL (1.8-2.4); TOTAL BILIRUBIN 0.2 mg/dL (0.2-1.0); TOTAL PROTEIN 6.8 g/dL (6.4-8.2)
[2019-10-02 22:52] VITALS: BP 114/57
--- NOTE | 2019-10-02 22:58 | RAD ---
EXAM: CHEST PA LATERAL, ABDOMEN SUPINE UPRIGHT INDICATION: Pain. Had tubal ligation as outpatient this morning. TECHNIQUE: PA and lateral views COMPARISON: None FINDINGS: The heart size is normal. The great vessels appear unremarkable. There is no hilar or mediastinal mass. The lungs are clear. There is no pleural effusion or pneumothorax. There are no significant osseous abnormalities. Small amount of free air under the diaphragms IMPRESSION: Free air under the diaphragms is consistent with recent abdominal surgery. No active cardiopulmonary disease. PROCEDURE: CHEST PA LATERAL, ABDOMEN SUPINE UPRIGHT STUDY DATE: 10/02/19 CLINICAL INDICATION / HISTORY: abdominal pain . TECHNIQUE: Single AP image of the abdomen was obtained. COMPARISON: none FINDINGS: The lung bases are clear. A nonobstructive bowel gas pattern is present. There is large stool in the bowel. No organomegaly or pathologic calcifications are identified. No acute osseous abnormality.Some free air is present in the right upper quadrant. IMPRESSION: Constipation and evidence of recent bowel surgery. Electronically signed by: Alyson Boyle MD (10/02/2019 10:55 PM) [id number]
[2019-10-02] MEDS ORDERED: MORPHINE SULFATE 10 MG/ML SYRINGE. SQ ONE (23:45)
[2019-10-03] MEDS ORDERED: MAGNESIUM HYDROXIDE 2,400 MG/30 ML ORAL.SUSP. PO ONE
== END 2019-10-03 00:46 | disposition home or self-care (01) ==
LOC: ER 19:39
DX: K59.00 Constipation, unspecified (principal); I77.89 Other specified disorders of arteries and arterioles; Z90.89 Acquired absence of other organs; Z88.8 Allergy status to other drugs, medicaments and biological substances
CPT/HCPCS: 36415; 71046; 74019; 80048; 80076; 80307; 81001; 81025; 82550; 83690; 83735; 83880; 84443; 84484; 85025; 85610; 85730; 93005; 96372; 99285; J2270; J7120

== ENCOUNTER 2020-06-11 08:30 | Emergency (ER) | payer OTHER ==
[~2020-06-11] VITALS: Ht 175.3 cm; Wt 92.3 kg
[2020-06-11] MEDS ORDERED: IV NORMAL SALINE 1,000ML 1,000 ML IV SCH (08:56)
--- NOTE | 2020-06-11 09:08 | PHYS DOC ---
Past History Past Medical History: No Pertinent History, IBS, Other Past Surgical History: Tubal ligation Smoking: Non-smoker Alcohol Use: None Drug Use: None Adult General Chief Complaint Chief Complaint: ABDOMINAL PAIN HPI HPI Patient is a 25-year-old female who presents for right lower quadrant pain. Onset was this morning without any known inciting event and/or ingestion. Nothing known makes better, p.o. intake makes worse. Associated symptoms include nausea. Pain is focal and nonradiating, and 7/10 severity. Timing of symptoms has been constant since onset, has not wanted to take anything in by mouth. No vaginal bleeding/discharge or urinary symptoms. Has been passing flatulence and having bowel movement since onset without improvement Review of Systems Review of Systems Fourteen body systems of review of systems have been reviewed. See HPI for pertinent positives and negative responses, other nathan all other systems are negative, non-pertinent or non-contributory Current Medications Current Medications Current Medications Medications (Trade) Dose Ordered Sig/Tess Start Time Stop Time Status Last Admin Dose Admin Sodium Chloride 1,000 ml @ 1,000 mls/hr Q1H 06/11/20 08:56 06/11/20 09:55 UNV Allergies Allergies Allergies Coded Allergies Type Severity Reaction Last Updated Verified ketoprofen Allergy Intermediate 06/11/20 Yes Physical Exam Physical Exam Constitutional: Well developed, well nourished, no acute distress, non-toxic appearance. HENT: Normocephalic, atraumatic, bilateral external ears normal, oropharynx moist, no oral exudates, nose normal. Eyes: PERRLA, EOMI, conjunctiva normal, no discharge. Neck: Normal range of motion, no tenderness, supple, no stridor. Cardiovascular: Heart rate regular, sinus rhythm, no murmurs rubs or gallops Lungs & Thorax: Bilateral breath sounds clear to auscultation Abdomen: Bowel sounds normal, soft, right lower quadrant tenderness to palpation with positive McBurney point, guarding present, no rebound no masses, no pulsatile masses. Negative Ziegler sign, negative obturator and heel strike Skin: Warm, dry, no erythema, no rash. Back: No tenderness, no CVA tenderness. Extremities: No tenderness, no cyanosis, no clubbing, ROM intact, no edema. Neurologic: Alert and oriented X 3, grossly normal motor & sensory function, no focal deficits noted. Psychologic: Affect normal, judgement normal, mood normal. Current Patient Data Vital Signs Vital Signs Date Time Temp Pulse Resp B/P (MAP) Pulse Ox O2 Delivery O2 Flow Rate FiO2 06/11/20 08:34 97.8 81 18 121/77 (92) 97 Room Air Lab Results Laboratory Tests Test 06/11/20 08:44 06/11/20 08:52 06/11/20 09:01 Urine Collection Type Unknown Urine Color Yellow Urine Clarity Clear Urine pH 7.0 Urine Specific [place] 1.010 Urine Protein Neg (NEG-TRACE) Urine Glucose (UA) Neg mg/dL (NEG) Urine Ketones (Stick) Neg mg/dL (NEG) Urine Blood Trace (NEG) Urine Nitrite Neg (NEG) Urine Bilirubin Neg (NEG) Urine Urobilinogen Dipstick 0.2 mg/dL (0.2 mg/dL) Urine Leukocyte Esterase Neg (NEG) Urine RBC 0 /HPF (0-2) Urine WBC 0 /HPF (0-4) Urine Squamous Epithelial Cells Occ /LPF Urine Bacteria 0 /HPF (0-FEW) White Blood Count 6.5 x10^3/uL (4.0-11.0) Red Blood Count 5.11 x10^6/uL (3.50-5.40) Hemoglobin 13.1 g/dL (12.0-15.5) Hematocrit 40.0 % (36.0-47.0) Mean Corpuscular Volume 78 fL (79-100) Mean Corpuscular Hemoglobin 26 pg (25-35) Mean Corpuscular Hemoglobin Concent 33 g/dL (31-37) Red Cell Distribution Width 14.9 % (11.5-14.5) Platelet Count 372 x10^3/uL (140-400) Neutrophils (%) (Auto) 63 % (31-73) Lymphocytes (%) (Auto) 25 % (24-48) Monocytes (%) (Auto) 7 % (0-9) Eosinophils (%) (Auto) 4 % (0-3) Basophils (%) (Auto) 1 % (0-3) Neutrophils # (Auto) 4.1 x10^3uL (1.8-7.7) Lymphocytes # (Auto) 1.6 x10^3/uL (1.0-4.8) Monocytes # (Auto) 0.4 x10^3/uL (0.0-1.1) Eosinophils # (Auto) 0.3 x10^3/uL (0.0-0.7) Basophils # (Auto) 0.1 x10^3/uL (0.0-0.2) Sodium Level 140 mmol/L (136-145) Potassium Level 3.7 mmol/L (3.5-5.1) Chloride Level 106 mmol/L (98-107) Carbon Dioxide Level 24 mmol/L (21-32) Anion Gap 10 (6-14) Blood Urea Nitrogen 5 mg/dL (7-20) Creatinine 0.9 mg/dL (0.6-1.0) Estimated GFR (Cockcroft-Gault) 75.7 BUN/Creatinine Ratio 6 (6-20) Glucose Level 93 mg/dL (70-99) Calcium Level 8.9 mg/dL (8.5-10.1) Total Bilirubin 0.3 mg/dL (0.2-1.0) Aspartate Amino Transf (AST/SGOT) 13 U/L (15-37) Alanine Aminotransferase (ALT/SGPT) 14 U/L (14-59) Alkaline Phosphatase 82 U/L (46-116) Total Protein 6.4 g/dL (6.4-8.2) Albumin 3.1 g/dL (3.4-5.0) Albumin/Globulin Ratio 0.9 (1.0-1.7) Lipase 84 U/L (73-393) Bedside Urine HCG, Qualitative hcg negative (Negative) EKG EKG [] Radiology/Procedures Radiology/Procedures PROCEDURE: ABDOMEN LTD Ultrasound of the right quadrant abdomen to include ultrasound evaluation of the right lower quadrant of the abdomen 06/11/2020 CLINICAL HISTORY: Right-sided abdominal pain. TECHNIQUE: A real-time ultrasound examination of the right upper quadrant abdomen was performed. Additionally limited real-time ultrasound evaluation of the right lower quadrant of the abdomen in the region of the appendix was performed. Multiple images were obtained. FINDINGS: The gallbladder is well-distended. No gallstones are visualized. The gallbladder wall thickness is within normal limits. No pericholecystic fluid is seen. The common bile duct measures 2 mm in diameter which is within normal limits. The liver is normal in size measuring 17.9 cm in length. No focal abnormality of the liver is seen. The pancreas and right kidney are within normal limits. No free fluid is seen. Real-time ultrasound evaluation in the region of the appendix demonstrates normal peristalsing bowel loops. The appendix is not visualized. No abnormal fluid collection is seen. IMPRESSION: Negative study. Electronically signed by: Edward Feng MD (06/11/2020 9:38 AM) [id number] PROCEDURE: PELVIS COMPLETE Pelvis ultrasound INDICATION: Right pelvic pain TECHNIQUE: Grayscale and spectral Doppler ultrasound imaging of the pelvis was performed transabdominally using the distended urinary bladder as an acoustic window. COMPARISON: CT abdomen and pelvis with IV contrast 06/11/2020. FINDINGS: Uterus measures 10.8 x 4.7 x 7.2 cm. The endometrial stripe measures 4 mm. Right ovary measures 3.5 x 2.3 x 1.9 cm and demonstrates normal blood flow on spectral Doppler imaging. The left ovary measures 3.2 x 3.3 x 1.6 cm and demonstrates normal blood flow on spectral Doppler imaging. No adnexal mass, fluid collection or significant pelvic free fluid is identified. The urinary bladder is unremarkable. IMPRESSION: Normal transabdominal pelvic ultrasound. If symptoms persist or worsen, follow-up could be considered. Endovaginal ultrasound was not performed at this visit. Electronically signed by: Alyson Boyle MD (06/11/2020 12:03 PM) [id number] PROCEDURE: PELVIS COMPLETE Pelvis ultrasound INDICATION: Right pelvic pain TECHNIQUE: Grayscale and spectral Doppler ultrasound imaging of the pelvis was performed transabdominally using the distended urinary bladder as an acoustic window. COMPARISON: CT abdomen and pelvis with IV contrast 06/11/2020. FINDINGS: Uterus measures 10.8 x 4.7 x 7.2 cm. The endometrial stripe measures 4 mm. Right ovary measures 3.5 x 2.3 x 1.9 cm and demonstrates normal blood flow on spectral Doppler imaging. The left ovary measures 3.2 x 3.3 x 1.6 cm and demonstrates normal blood flow on spectral Doppler imaging. No adnexal mass, fluid collection or significant pelvic free fluid is identified. The urinary bladder is unremarkable. IMPRESSION: Normal transabdominal pelvic ultrasound. If symptoms persist or worsen, follow-up could be considered. Endovaginal ultrasound was not performed at this visit. Electronically signed by: Alyson Boyle MD (06/11/2020 12:03 PM) [id number] PROCEDURE: CT ABD PELV W/ IV CONTRST ONLY EXAM: Abdomen and pelvis CT with intravenous contrast. HISTORY: Right lower quadrant pain. TECHNIQUE: Computed tomographic images of the abdomen and pelvis were obtained following the administration of intravenous contrast. Multiplanar reformatting was performed. *One or more of the following individualized dose reduction techniques were utilized for this examination: 1. Automated exposure control. 2. Adjustment of the mA and/or kV according to patient size. 3. Use of iterative reconstruction technique. COMPARISON: 07/21/2017. FINDINGS: Evaluation of the lower thorax demonstrates a 4 mm nodule within the posterior lateral left lower lobe. There are additional tiny 2 mm nodules within both lower lobes and there are are a few pleural-based nodules are likely due to atelectasis. The stability of the pulmonary nodules over a nearly 3 year interval confirms benignity. There is no infiltrate or pleural effusion. The heart is normal in size. There is no hepatic lesion. The gallbladder, pancreas, spleen and adrenal glands are unremarkable. The kidneys are unremarkable. The appendix is normal in caliber. There is no significant surrounding change to suggest appendicitis. There is no bowel obstruction. There is moderate stool within the proximal colon. The urinary bladder and uterus are unremarkable. There are multiple ovarian follicles any predominant peripheral distribution. The aorta is normal in caliber. There is no lymphadenopathy. There is no suspicious osseous lesion. IMPRESSION: 1. No convincing acute abdominal or pelvic finding. 2. Multiple ovarian follicles in a predominant peripheral distribution. This can be seen in the setting of polycystic ovary syndrome. This is best appreciated on coronal images and can be formally assessed with a pelvic sonogram if there is clinical concern. 3. Tiny bilateral lower lobe pulmonary nodules. The nearly 3 year course of stability confirms benignity. Electronically signed by: Iman Mcmanus MD (06/11/2020 10:41 AM) [id number] Heart Score HEART Score for Chest Pain: HEART Score for Chest Pain Response (Comments) Value History Slighlty/Non-Suspicious 0 Age < 45 0 Total 0 Risk Factors: Risk Factors: DM, Current or recent (<one month) smoker, HTN, HLP, family history of CAD, obesity. Risk Scores: Risk Factors: DM, Current or recent (<one month) smoker, HTN, HLP, family history of CAD, obesity. Course & Med Decision Making Course & Med Decision Making Pertinent Labs and Imaging studies reviewed. (See chart for details) Patient was evaluated our facility for abdominal pain with no specific cause, I suspect musculoskeletal etiology versus acute presentation of more concerning pathology not picked up on imaging studies Dr. Mccarty, general surgery at [facility] was contacted and case reviewed after initial concern for appendicitis, further imaging studies obtain ed and all were grossly negative Patient tolerated symptomatic treatment with IV fluids and pain medication at ER. Given that she is feeling better, tolerating p.o. intake, and hemodynamically stable with good access to care and outpatient setting, joint decision to discharge home with close follow-up Strict return precautions were discussed with good understanding, all questions and concerns addressed prior to ER departure in stable condition Dragon Disclaimer Dragon Disclaimer This electronic medical record was generated, in whole or in part, using a voice recognition dictation system. Departure Departure: Impression: Primary Impression: Unspecified abdominal pain Disposition: DC HOME SELF CARE/HOMELESS Condition: STABLE Referrals: PCP,UNKNOWN (PCP) Patient Instructions: Abdominal Pain (Nonspecific) Additional Instructions: As discussed prior to ER departure, please call your primary care physician to schedule outpatient follow-up in upcoming 7 days for repeat evaluation Please continue supportive care for your right lower quadrant pain consisting of Tylenol and/or NSAIDs for pain control Your evaluation was not suggestive of any emergent condition requiring medical intervention at this time. However, some abdominal problems make take more time to appear. Therefore, it is important for you to watch for any new symptoms or worsening of your current condition. Return to the Emergency Department if you experience worsening pain, persistent fevers greater than 100.4, recurrent vomiting, blood in vomit, blood in stool, dark tarry stool, chest pain, difficulty breathing, or any other concerning symptoms. Scripts Ibuprofen (IBUPROFEN) 800 Mg Tablet 1 TAB PO TID for PAIN, #30 TAB Prov: CRISTINA HERNANDEZ DO 06/11/20 CRISTINA HERNANDEZ DO Jun 11, 2020 09:07
[2020-06-11 09:09] LABS: BASO # 0.1 x10^3/uL (0.0-0.2); BASO % 1 % (0-3); EOS # 0.3 x10^3/uL (0.0-0.7); EOS % 4 % (0-3); HEMOGLOBIN 13.1 g/dL (12.0-15.5); LYMPH # 1.6 x10^3/uL (1.0-4.8); LYMPH % 25 % (24-48); MEAN CORPUSCULAR HEMOGLOBIN 26 pg (25-35); MEAN CORPUSCULAR HGB CONC 33 g/dL (31-37); MEAN CORPUSCULAR VOLUME 78 fL (79-100); MONO # 0.4 x10^3/uL (0.0-1.1); MONO % 7 % (0-9); NEUT # 4.1 x10^3uL (1.8-7.7); NEUT % 63 % (31-73); PLATELET COUNT 372 x10^3/uL (140-400); RED BLOOD COUNT 5.11 x10^6/uL (3.50-5.40); RED CELL DISTRIBUTION WIDTH 14.9 % (11.5-14.5); WHITE BLOOD COUNT 6.5 x10^3/uL (4.0-11.0)
[2020-06-11 09:14] LABS: CALCIUM 8.9 mg/dL (8.5-10.1); CREATININE 0.9 mg/dL (0.6-1.0); GFR 75.7; POTASSIUM 3.7 mmol/L (3.5-5.1)
[2020-06-11 09:20] LABS: ALBUMIN 3.1 g/dL (3.4-5.0); ALBUMIN/GLOBULIN RATIO 0.9 (1.0-1.7); TOTAL BILIRUBIN 0.3 mg/dL (0.2-1.0); TOTAL PROTEIN 6.4 g/dL (6.4-8.2)
[2020-06-11] MEDS ORDERED: MORPHINE SULFATE 4 MG/ML DISP.SYRIN. IV ONE ×2 (09:30→10:15)
--- NOTE | 2020-06-11 09:41 | RAD ---
Ultrasound of the right quadrant abdomen to include ultrasound evaluation of the right lower quadrant of the abdomen 06/11/2020 CLINICAL HISTORY: Right-sided abdominal pain. TECHNIQUE: A real-time ultrasound examination of the right upper quadrant abdomen was performed. Additionally limited real-time ultrasound evaluation of the right lower quadrant of the abdomen in the region of the appendix was performed. Multiple images were obtained. FINDINGS: The gallbladder is well-distended. No gallstones are visualized. The gallbladder wall thickness is within normal limits. No pericholecystic fluid is seen. The common bile duct measures 2 mm in diameter which is within normal limits. The liver is normal in size measuring 17.9 cm in length. No focal abnormality of the liver is seen. The pancreas and right kidney are within normal limits. No free fluid is seen. Real-time ultrasound evaluation in the region of the appendix demonstrates normal peristalsing bowel loops. The appendix is not visualized. No abnormal fluid collection is seen. IMPRESSION: Negative study. Electronically signed by: Edward Feng MD (06/11/2020 9:38 AM) [id number]
[2020-06-11 09:51] LABS: BACTERIA,URINE 0 /HPF (0-FEW); BILIRUBIN,URINE NEG (NEG); CLARITY,URINE CLEAR; COLOR,URINE YELLOW; GLUCOSE,URINE NEG (NEG); NITRITE,URINE NEG (NEG); RBC,URINE 0 /HPF (0-2); SQUAMOUS EPITHELIAL CELL,UR OCC /LPF; UROBILINOGEN,URINE 0.2 mg/dL (0.2 mg/dL); WBC,URINE 0 /HPF (0-4)
[2020-06-11] MEDS ORDERED: IOHEXOL 300 MG/ML 75 ML VIAL. IV ONE (10:15)
--- NOTE | 2020-06-11 10:44 | RAD ---
EXAM: Abdomen and pelvis CT with intravenous contrast. HISTORY: Right lower quadrant pain. TECHNIQUE: Computed tomographic images of the abdomen and pelvis were obtained following the administration of intravenous contrast. Multiplanar reformatting was performed. *One or more of the following individualized dose reduction techniques were utilized for this examination: 1. Automated exposure control. 2. Adjustment of the mA and/or kV according to patient size. 3. Use of iterative reconstruction technique. COMPARISON: 07/21/2017. FINDINGS: Evaluation of the lower thorax demonstrates a 4 mm nodule within the posterior lateral left lower lobe. There are additional tiny 2 mm nodules within both lower lobes and there are are a few pleural-based nodules are likely due to atelectasis. The stability of the pulmonary nodules over a nearly 3 year interval confirms benignity. There is no infiltrate or pleural effusion. The heart is normal in size. There is no hepatic lesion. The gallbladder, pancreas, spleen and adrenal glands are unremarkable. The kidneys are unremarkable. The appendix is normal in caliber. There is no significant surrounding change to suggest appendicitis. There is no bowel obstruction. There is moderate stool within the proximal colon. The urinary bladder and uterus are unremarkable. There are multiple ovarian follicles any predominant peripheral distribution. The aorta is normal in caliber. There is no lymphadenopathy. There is no suspicious osseous lesion. IMPRESSION: 1. No convincing acute abdominal or pelvic finding. 2. Multiple ovarian follicles in a predominant peripheral distribution. This can be seen in the setting of polycystic ovary syndrome. This is best appreciated on coronal images and can be formally assessed with a pelvic sonogram if there is clinical concern. 3. Tiny bilateral lower lobe pulmonary nodules. The nearly 3 year course of stability confirms benignity. Electronically signed by: Iman Mcmanus MD (06/11/2020 10:41 AM) [id number]
--- NOTE | 2020-06-11 12:07 | RAD ---
Pelvis ultrasound INDICATION: Right pelvic pain TECHNIQUE: Grayscale and spectral Doppler ultrasound imaging of the pelvis was performed transabdominally using the distended urinary bladder as an acoustic window. COMPARISON: CT abdomen and pelvis with IV contrast 06/11/2020. FINDINGS: Uterus measures 10.8 x 4.7 x 7.2 cm. The endometrial stripe measures 4 mm. Right ovary measures 3.5 x 2.3 x 1.9 cm and demonstrates normal blood flow on spectral Doppler imaging. The left ovary measures 3.2 x 3.3 x 1.6 cm and demonstrates normal blood flow on spectral Doppler imaging. No adnexal mass, fluid collection or significant pelvic free fluid is identified. The urinary bladder is unremarkable. IMPRESSION: Normal transabdominal pelvic ultrasound. If symptoms persist or worsen, follow-up could be considered. Endovaginal ultrasound was not performed at this visit. Electronically signed by: Alyson Boyle MD (06/11/2020 12:03 PM) [id number]
[2020-06-11 12:16] VITALS: BP 110/59
[2020-06-11] MEDS ORDERED: IBUP800T19 PO (12:37)
== END 2020-06-11 12:40 | disposition home or self-care (01) ==
LOC: ER 08:30
DX: R10.31 Right lower quadrant pain (principal); R11.0 Nausea; K58.9 Irritable bowel syndrome, unspecified; Z98.51 Tubal ligation status; Z88.8 Allergy status to other drugs, medicaments and biological substances
CPT/HCPCS: 36415; 74177; 76705; 76856; 80053; 81001; 81025; 83690; 85025; 93975; 96361; 96374; 96376; 99285; J2270; J7030; Q9967

== ENCOUNTER 2020-06-30 16:02 | Emergency (ER) | payer OTHER ==
[~2020-06-30] VITALS: Ht 175.3 cm; Wt 95.9 kg
[~2020-06-30 16:02] MED LIST changes: +IBUP800T19 PO
[2020-06-30 16:50] VITALS: BP 124/67
--- NOTE | 2020-06-30 17:00 | PHYS DOC ---
Past History Past Medical History: IBS, Other Past Surgical History: Tubal ligation Smoking: Non-smoker Alcohol Use: None Drug Use: None General Adult EDM: Chief Complaint: BACK PAIN OR INJURY HPI: HPI: Patient is a 25-year-old female who presents with lumbar pain worse on the right side that began yesterday. 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 Patient now complains of 5 out of 10 right-sided lumbar pain that radiates to the right hip. Pain is worse with certain activities and movement. Patient denies any focal weakness or numbness. Patient denies any bladder or bowel incontinence. Patient states the pain feels like "back labor". Patient denies Review of Systems: Review of Systems: Constitutional: Denies fever or chills Eyes: Denies change in visual acuity HENT: Denies nasal congestion or sore throat Respiratory: Denies cough or shortness of breath Cardiovascular: Denies chest pain or edema GI: Denies abdominal pain, nausea, vomiting, bloody stools or diarrhea : Denies dysuria Musculoskeletal: Patient planes of back pain but no joint pain Integument: Denies rash Neurologic: Denies headache, focal weakness or sensory changes Endocrine: Denies polyuria or polydipsia Lymphatic: Denies swollen glands Psychiatric: Denies depression or anxiety Allergies: Allergies: Allergies Coded Allergies Type Severity Reaction Last Updated Verified ketoprofen Allergy Intermediate 06/11/20 Yes Physical Exam: PE: Constitutional: Well developed, well nourished, no acute distress, non-toxic appearance. [] HENT: Normocephalic, atraumatic, bilateral external ears normal, no trismus nose normal. [] Eyes: PERRLA, EOMI, conjunctiva normal, no discharge. [] Neck: Normal range of motion, no tenderness, supple, no stridor. [] Cardiovascular:Heart rate regular rhythm, peripheral pulses are intact, cap refills less than 2 seconds Lungs & Thorax: Bilateral breath sounds clear, no respiratory distress Abdomen: soft, no tenderness, no masses, no pulsatile masses. [] Skin: Warm, dry, no erythema, no rash. [] Back: Mild tenderness on the right lumbar area Extremities: No tenderness, no cyanosis, no clubbing, ROM intact, no edema. [] Neurologic: Alert and oriented X 3, normal motor function, normal sensory fun ction, no focal deficits noted. [] No saddle anesthesia, dorsiflexion is intact to the bilateral extremities Psychologic: Affect normal, judgement normal, mood normal. [] Current Patient Data: Labs: Laboratory Tests Test 06/30/20 17:06 Bedside Urine HCG, Qualitative hcg negative Vital Signs: Vital Signs Date Time Temp Pulse Resp B/P (MAP) Pulse Ox O2 Delivery O2 Flow Rate FiO2 06/30/20 16:50 98.0 72 16 124/67 (86) 99 Room Air EKG: EKG: [] Radiology/Procedures: Radiology/Procedures: [] Heart Score: Risk Factors: Risk Factors: DM, Current or recent (<one month) smoker, HTN, HLP, family history of CAD, obesity. Risk Scores: Score 0 - 3: 2.5% MACE over next 6 weeks - Discharge Home Score 4 - 6: 20.3% MACE over next 6 weeks - Admit for Clinical Observation Score 7 - 10: 72.7% MACE over next 6 weeks - Early Invasive Strategies Course & Med Decision Making: Course & Med Decision Making Pertinent Labs and Imaging studies reviewed. (See chart for details) [] 25-year-old female with lumbar back pain. No signs of cauda equina test is negative. Patient was placed on steroids and muscle relaxers. Return precautions given. Dragon Disclaimer: Altagracia Disclaimer: This electronic medical record was generated, in whole or in part, using a voice recognition dictation system. Departure Departure: Impression: Primary Impression: Lumbar back pain Disposition: 01 DC HOME SELF CARE/HOMELESS Condition: STABLE Referrals: HUGH ELLIOTT DO (PCP) 2 to 3 days Patient Instructions: Back Pain, Adult Additional Instructions: EMERGENCY DEPARTMENT GENERAL DISCHARGE INSTRUCTIONS THANK YOU for coming to [facility] Emergency Department (ED) today and trusting us with your care. We trust that you had a positive experience in our Emergency Department. If you wish to speak to the department Management you can contact the emergency department at YOUR FOLLOW UP INSTRUCTIONS ARE FOLLOWS: Do you have a private doctor? If you do not have a private doctor, please ask for a resource list of physicians or clinics that may be able to assist you with follow up care. The Emergency Physician has interpreted your x-rays. The X-ray specialist will a lso review them. If there is a change in the findings you will be notified in 48 hours when at all possible. A lab test or lab culture may have been done, your results will be reviewed and you will be notified if you need a change in treatment. ADDITIONAL INSTRUCTIONS AND INFORMATION Your care today has been supervised by a physician who is specially trained in emergency care. Many problems require more than one evaluation for a complete diagnosis and treatment. We recommend that you schedule your follow up appointment as recommended to ensure complete treatment of your illness or injury. If you are unable to obtain follow up care and continue to have a problem, or if your condition worsens we recommend that you return to the ED. We are not able to safely determine your condition over the phone nor are we able to give sound medical advice over the phone. For these safety reasons, if you call for medical advice we will ask you to come to the ED for further evaluation If you have any questions regarding these discharge instructions please call the ED at . SAFETY INFORMATION In the interest of safety, wellness, and injury prevention; we encourage you to wear your seatbelt, if you smoke; quit smoking, and we encourage your family to use protective helmet for bicycling and other sporting events that present an increased risk for head injury. IF YOUR SYMPTOMS WORSEN OR NEW SYMPTOMS DEVELOP, OR YOU HAVE CONCERNS ABOUT YOUR CONDITION; OR IF YOUR CONDITION WORSENS WHILE YOU ARE WAITING FOR YOUR FOLLOW UP APPOINTMENT; EITHER CONTACT YOUR PRIMARY CARE DOCTOR, THE PHYSICIAN WHOSE NAME AND NUMBER YOU WERE GIVEN, OR RETURN TO THE ED IMMEDIATELY. Scripts Diazepam (VALIUM) 5 Mg Tablet 5 MG PO TID for back pain, #12 TAB Prov: IKER ULLOA MD 06/30/20 Methylprednisolone (MEDROL) 4 Mg Tab.ds.pk 1 PKG PO UD for inflammation, #1 PKG Prov: IKER ULLOA MD 06/30/20 IKER ULLOA MD Jun 30, 2020 16:59
[2020-06-30] MEDS ORDERED: DIAZ5TAB PO (17:21)
[2020-06-30] MEDS ORDERED: METH4TAB2 PO (17:21)
== END 2020-06-30 17:21 | disposition home or self-care (01) ==
LOC: ER 16:02
DX: M54.5 Low back pain (principal); K58.9 Irritable bowel syndrome, unspecified; Z98.51 Tubal ligation status; Z88.8 Allergy status to other drugs, medicaments and biological substances
CPT/HCPCS: 81025; 99283

== ENCOUNTER 2020-07-02 07:47 | Emergency (ER) | payer OTHER ==
[~2020-07-02] VITALS: Ht 175.3 cm; Wt 96.2 kg
[~2020-07-02 07:47] MED LIST changes: +DIAZ5TAB PO; +METH4TAB2 PO
[2020-07-02 08:20] VITALS: BP 114/47
[2020-07-02] MEDS ORDERED: KETOROLAC 15 MG/ML VIAL. IM ONE (08:30)
[2020-07-02] MEDS ORDERED: diazePAM 5 MG TABLET. PO ONE (08:30)
--- NOTE | 2020-07-02 08:30 | PHYS DOC ---
Past History Past Medical History: IBS, Other Past Surgical History: Tubal ligation Smoking: Non-smoker Alcohol Use: None Drug Use: None General Adult EDM: Chief Complaint: LOWER BACK PAIN OR INJURY HPI: HPI: 25-year-old female past medical history of IBS, presents the ED with complaints of exacerbation of back pain that started 2 days ago while patient was twisting. Patient was seen in the ED with no imaging was prescribed Valium and Medrol Dosepak. Is also tried hot and cold packs nitro patches. Patient describes her location of pain is left lumbar paraspinal and radiates down her left leg, pain is described as "tingling." Did not take any medication prior to coming in. No h/o back trauma or surgery. On 06/30 visit, pts' pain was in her right lumbar region that radiated to her right hip. EMR was reviewed and patient was seen in the ED on June 11 for abdominal pain, CT was concerning for PCOS. H/o tubal ligation. Review of Systems: Review of Systems: Constitutional: Denies fever or chills Eyes: Denies change in visual acuity HENT: Denies nasal congestion or sore throat Respiratory: Denies cough or shortness of breath Cardiovascular: Denies chest pain or edema GI: Denies abdominal pain, nausea, vomiting, bloody stools or diarrhea : Denies dysuria Musculoskeletal: Denies joint swelling, saddle anesthesia, no urinary or bowel retention or incontinence Integument: Denies rash Neurologic: Denies headache, no neck pain, focal weakness or sensory changes Endocrine: Denies polyuria or polydipsia Lymphatic: Denies swollen glands Psychiatric: Denies depression or anxiety Allergies: Allergies: Allergies Coded Allergies Type Severity Reaction Last Updated Verified ketoprofen Allergy Intermediate 06/11/20 Yes Physical Exam: PE: Constitutional: Well developed, well nourished, no acute distress, non-toxic appearance. HENT: Normocephalic, atraumatic, Eyes: EOMI, conjunctiva normal, no discharge. Neck: Normal range of motion, supple, Cardiovascular: S1/2 present, regular rhythm Lungs & Thorax: Speaking in full sentences, bilateral equal chest rise, no tachypnea or increased work of breathing Abdomen: soft, no tenderness, Skin: Warm, dry, no erythema, no rash. [] Back: No midline tenderness or stepoffs, left lumbar L1-4 paraspinal tenderness to palpation, straight leg positive on the left leg, no rash Extremities: No tenderness, no cyanosis, no edema Neurologic: Alert and oriented X 3, normal motor function, normal sensory function, no focal deficits noted. [] Psychologic: Affect normal, judgement normal, mood normal. [] EKG: EKG: [] Radiology/Procedures: Radiology/Procedures: IMAGING REPORT Signed PATIENT: VINICIUS CHAVES ACCOUNT: [id number] : 1995 LOCATION: ER AGE: 25 SEX: F EXAM STATUS: REG ER ORD. PHYSICIAN: NOEMI PADGETT DO REASON: L1-4 back pain PROCEDURE: CT LUMBAR SPINE WO CONTRAST EXAM: CT Lumbar Spine without IV contrast INDICATION: Reason: L1-4 back pain / Spl. Instructions: / History: TECHNIQUE: Multi-detector row CT images were obtained through the lumbar spine without the use of IV contrast. Post-processing sagittal and coronal reconstructed images were obtained for interpretation. All CT scans performed at this facility utilize dose optimization techniques as appropriate to the exam, including the following: Automated exposure control and adjustment of the mA and/or KV according to patient size (this includes techniques or standardized protocols for targeted exams where dose is indication/reason for exam). COMPARISON: None FINDINGS: The lowest fully formed disc is referred to as the L5-S1 level. There are hypoplastic ribs at T12. ALIGNMENT: Alignment is within normal limits. OSSEOUS: No evidence of fracture or bone destruction. DISC SPACES: Partly calcified disc protrusion at L4-L5 and to a lesser extent at L5-S1 are present. FACET JOINTS: Unremarkable. SPINAL CANAL: Unremarkable. NEUROFORAMINA: Unremarkable. SOFT TISSUES: Unremarkable. IMPRESSION: Mild disc degenerative change in the lower lumbar spine notably at L4-L5. No acute or aggressive osseous lesions and no malalignment. No significant spinal stenosis demonstrated on noncontrast CT. Electronically signed by: Shu Boyle MD (07/02/2020 8:47 AM) [id number] DICTATED AND SIGNED BY: SHU BOYLE MD DATE: 07/02/20 0847 CC: HUGH ELLIOTT DO; VOHS,NOEMI M DO ~MTH0 0 Heart Score: Risk Factors: Risk Factors: DM, Current or recent (<one month) smoker, HTN, HLP, family history of CAD, obesity. Risk Scores: Score 0 - 3: 2.5% MACE over next 6 weeks - Discharge Home Score 4 - 6: 20.3% MACE over next 6 weeks - Admit for Clinical Observation Score 7 - 10: 72.7% MACE over next 6 weeks - Early Invasive Strategies Course & Med Decision Making: Course & Med Decision Making Pertinent Labs and Imaging studies reviewed. (See chart for details) Concern for left sided muscle spasm with radiculopathy, no neuro deficits. CT L- spine with ddd. Strict ED return precautions were given for saddle anesthesia, urinary or bowel retention or incontinence. Encouraged urgent outpatient follow- up with PMD and Ortho. Life-threatening processes were considered but are low suspicion at this time, given history and physical exam. Pt was educated on all prescription medications and adverse effects. All patient's questions were answered and pt was stable at time of discharge. Life/limb-threatening differential includes but is not limited to, aortic dissection/aneurysm, cauda equina syndrome, transverse myelitis, spinal cord compression, epidural abscess or hematoma, osteomyelitis, disc herniation, surgical abdomen, stable or unstable fracture, renal/ureteral colic, sepsis, musculoskeletal injury, traumatic injury, intraabdominal or pelvic bleeding. I spoken with the patient and her caregivers. I explained the patient's condition, diagnoses and treatment plan based on the information available to me at this time. I have answered the patient and her caregiver's questions and addressed any concerns. The patient and her caregivers have a good understanding of patient's diagnosis, condition and treatment plan as can be expected at this point. Vital signs have been stable. Patient's condition is stable and appropriate for discharge from the emergency department. Patient will pursue further outpatient evaluation with primary care physician or other designated or consulting physician as outlined in the discharge instructions. The patient and/or caregivers are agreeable to this plan of care and follow-up instructions have been explained in detail. The patient and/or caregivers have received these instructions in written form and have expressed an understanding of the discharge instructions. The patient and/or caregivers are aware that any significant change of condition or worsening of symptoms should prompt immediate return to this or the closest emergency department or call to 911. Altagracia Disclaimer: Dragon Disclaimer: This electronic medical record was generated, in whole or in part, using a voice recognition dictation system. Departure Departure: Impression: Primary Impression: Lumbar paraspinal muscle spasm Additional Impression: Radicular pain of left lower extremity Disposition: 01 DC HOME SELF CARE/HOMELESS Condition: STABLE Referrals: HUGH ELLIOTT DO (PCP) within 1 week Patient Instructions: Back Pain, Adult, Lumbosacral Radiculopathy, Muscle Cramps, [id number] Additional Instructions: FOLLOW UP WITH ORTHOPEDICS: [facility] [address], [address] [place] [address] EMERGENCY DEPARTMENT GENERAL DISCHARGE INSTRUCTIONS Thank you for coming to [place] [facility] (ED) today and trusting us with you care. We trust that you had a positivie experience in our Emergency Department. If you wish to speak to the department management, you may call the director at [phone]. YOUR FOLLOW UP INSTRUCTIONS ARE FOLLOWS: 1. Do you have a private Doctor? If you do not have a private doctor, please ask for a resource list of physicians or clinics that may be able to assist you with follow up care. 2. The Emergency Physician has interpreted your x-rays. The X-Ray specialist will also review them. If there is a change in the findings, you will be notified in 48 hours when at all possible. 3. A lab test or culture has been done, your results will be reviewed and you will be notified if you need a change in treatment. ADDITIONAL INSTRUCTIONS AND INFORMATION: 1. Your care today has been supervised by a physician who is specially trained in emergency care. Many problems require more than one evaluation for a complete diagnosis and treatment. We recommend that you schedule your follow up appointment as recommended to ensure complete treatment of you illness or injury. If you are unable to obtain follow up care and continue to have a problem, or if your condition worsens, we recommend that you return to the ED. 2. We are not able to safely determine your condition over the phone nor are we able to give sound medical advice over the phone. For these safety reasons, if you call for medical advice we will ask you to come to the ED for further evaluation. 3. If you have any questions regarding these discharge instructions please call the ED at [phone]. SAFETY INFORMATION: In the interest of safety, wellness, and injury prevention; we encourage you to wear your sealbelt, if you smoke; quite smoking, and we encourage family to use a protective helmet for bicycling and other sporting events that present an increased risk for head injury. IF YOUR SYMPTOMS WORSEN OR NEW SYMPTOMS DEVELOP, OR YOU HAVE CONCERNS ABOUT YOUR CONDITION; OR IF YOUR CONDITION WORSENS WHILE YOU ARE WAITING FOR YOUR FOLLOW UP APPOINTMENT; EITHER CONTACT YOUR PRIMARY CARE DOCTOR, THE PHYSICIAN WHOSE NAME AND NUMBER YOU WERE GIVEN, OR RETURN TO THE ED IMMEDIATELY. [facility] DO Jul 02, 2020 08:30
--- NOTE | 2020-07-02 08:50 | RAD ---
EXAM: CT Lumbar Spine without IV contrast INDICATION: Reason: L1-4 back pain / Spl. Instructions: / History: TECHNIQUE: Multi-detector row CT images were obtained through the lumbar spine without the use of IV contrast. Post-processing sagittal and coronal reconstructed images were obtained for interpretation. All CT scans performed at this facility utilize dose optimization techniques as appropriate to the exam, including the following: Automated exposure control and adjustment of the mA and/or KV according to patient size (this includes techniques or standardized protocols for targeted exams where dose is indication/reason for exam). COMPARISON: None FINDINGS: The lowest fully formed disc is referred to as the L5-S1 level. There are hypoplastic ribs at T12. ALIGNMENT: Alignment is within normal limits. OSSEOUS: No evidence of fracture or bone destruction. DISC SPACES: Partly calcified disc protrusion at L4-L5 and to a lesser extent at L5-S1 are present. FACET JOINTS: Unremarkable. SPINAL CANAL: Unremarkable. NEUROFORAMINA: Unremarkable. SOFT TISSUES: Unremarkable. IMPRESSION: Mild disc degenerative change in the lower lumbar spine notably at L4-L5. No acute or aggressive osseous lesions and no malalignment. No significant spinal stenosis demonstrated on noncontrast CT. Electronically signed by: Alyson Boyle MD (07/02/2020 8:47 AM) [id number]
== END 2020-07-02 09:30 | disposition home or self-care (01) ==
LOC: ER 07:47
DX: M62.830 Muscle spasm of back (principal); M79.605 Pain in left leg; M54.5 Low back pain; K58.9 Irritable bowel syndrome, unspecified; Z98.51 Tubal ligation status
CPT/HCPCS: 72131; 81025; 96372; 99284; J1885

== ENCOUNTER 2020-08-17 09:48 | Emergency (ER) | payer OTHER ==
[~2020-08-17] VITALS: Ht 175.3 cm; Wt 97.2 kg
[2020-08-17 10:29] LABS: BASO % 1 % (0-3); EOS # 0.2 x10^3/uL (0.0-0.7); EOS % 3 % (0-3); HEMATOCRIT 39.5 % (36.0-47.0); HEMOGLOBIN 13.2 g/dL (12.0-15.5); LYMPH # 1.6 x10^3/uL (1.0-4.8); LYMPH % 19 % (24-48); MEAN CORPUSCULAR HEMOGLOBIN 26 pg (25-35); MEAN CORPUSCULAR HGB CONC 33 g/dL (31-37); MEAN CORPUSCULAR VOLUME 78 fL (79-100); MONO # 0.5 x10^3/uL (0.0-1.1); MONO % 6 % (0-9); NEUT # 5.8 x10^3uL (1.8-7.7); NEUT % 72 % (31-73); PLATELET COUNT 378 x10^3/uL (140-400); RED BLOOD COUNT 5.07 x10^6/uL (3.50-5.40); RED CELL DISTRIBUTION WIDTH 15.2 % (11.5-14.5); WHITE BLOOD COUNT 8.1 x10^3/uL (4.0-11.0)
[2020-08-17 10:44] LABS: CALCIUM 8.7 mg/dL (8.5-10.1); CREATININE 0.7 mg/dL (0.6-1.0); GFR 101.1
[2020-08-17] MEDS ORDERED: ONDANSETRON PF 4 MG/2 ML VIAL. IVP ONE (10:45)
[2020-08-17] MEDS ORDERED: KETOROLAC 15 MG/ML VIAL. IVP ONE (10:45)
--- NOTE | 2020-08-17 10:45 | PHYS DOC ---
Past History Past Medical History: IBS Past Surgical History: Tubal ligation Smoking: Non-smoker Alcohol Use: Rarely Drug Use: None General Adult EDM: Chief Complaint: ABDOMINAL PAIN HPI: HPI: 25-year-old female past medical history significant for IBS, presents to the ED with complaints of right upper quadrant abdominal pain that started last night after eating dinner (she made potato rivels) around 6:30 PM. Patient states pain started in the left upper quadrant and then moved to the right with associated nausea and one loose slimy dark brown bowel movement and flatus (takes no iron or Pepto-Bismol, no recent pizza or hamburger). States her son was vomiting on Monday but it was quick and resolved. ate same meal and is asymptomatic. 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 Has no liver disease disease or history of bleeding problems-has never required a blood transfusion. Review of Systems: Review of Systems: Constitutional: Denies fever or chills Eyes: Denies change in visual acuity HENT: Denies nasal congestion or sore throat Respiratory: Denies cough or shortness of breath Cardiovascular: Denies chest pain or edema GI: Denies hematochezia, hematemesis or diarrhea : Denies dysuria or hematuria Musculoskeletal: Denies back pain or joint pain Integument: Denies rash or crepitus Neurologic: Denies headache, focal weakness or sensory changes Endocrine: Denies polyuria or polydipsia Lymphatic: Denies swollen glands Psychiatric: Denies depression or anxiety Current Medications: Current Meds: Current Medications Medications (Trade) Dose Ordered Sig/Tess Start Time Stop Time Status Last Admin Dose Admin Ketorolac Tromethamine (Toradol 15mg Vial) 15 mg 1X ONCE 08/17/20 10:45 08/17/20 10:46 UNV Ondansetron HCl (Zofran) 4 mg 1X ONCE 08/17/20 10:45 08/17/20 10:46 UNV Allergies: Allergies: Allergies Coded Allergies Type Severity Reaction Last Updated Verified ketoprofen Allergy Intermediate 07/02/20 Yes Physical Exam: PE: Constitutional: Well developed, well nourished, no acute distress, non-toxic appearance. HENT: Normocephalic, atraumatic, Eyes: EOMI, conjunctiva normal, no discharge. Neck: Normal range of motion, supple, Cardiovascular: S1/2 present, regular rhythm Lungs & Thorax: Speaking in full sentences, bilateral equal chest rise, no tachypnea or increased work of breathing Abdomen: soft, no reproducible tenderness, no guarding or peritonitis no active vomiting Skin: Warm, dry, no erythema, no rash. [] Back: No tenderness, no CVA tenderness. [] Extremities: No tenderness, no cyanosis, no edema Neurologic: Alert and oriented X 3, normal motor function, normal sensory function, no focal deficits noted. [] Psychologic: Affect normal, judgement normal, mood normal. [] Current Patient Data: Labs: Laboratory Tests Test 08/17/20 10:05 White Blood Count 8.1 x10^3/uL (4.0-11.0) Red Blood Count 5.07 x10^6/uL (3.50-5.40) Hemoglobin 13.2 g/dL (12.0-15.5) Hematocrit 39.5 % (36.0-47.0) Mean Corpuscular Volume 78 fL (79-100) L Mean Corpuscular Hemoglobin 26 pg (25-35) Mean Corpuscular Hemoglobin Concent 33 g/dL (31-37) Red Cell Distribution Width 15.2 % (11.5-14.5) H Platelet Count 378 x10^3/uL (140-400) Neutrophils (%) (Auto) 72 % (31-73) Lymphocytes (%) (Auto) 19 % (24-48) L Monocytes (%) (Auto) 6 % (0-9) Eosinophils (%) (Auto) 3 % (0-3) Basophils (%) (Auto) 1 % (0-3) Neutrophils # (Auto) 5.8 x10^3uL (1.8-7.7) Lymphocytes # (Auto) 1.6 x10^3/uL (1.0-4.8) Monocytes # (Auto) 0.5 x10^3/uL (0.0-1.1) Eosinophils # (Auto) 0.2 x10^3/uL (0.0-0.7) Basophils # (Auto) 0.0 x10^3/uL (0.0-0.2) Vital Signs: Vital Signs Date Time Temp Pulse Resp B/P (MAP) Pulse Ox O2 Delivery O2 Flow Rate FiO2 08/17/20 09:55 98.0 78 20 114/64 (81) 99 Room Air EKG: EKG: [] Radiology/Procedures: Radiology/Procedures: IMAGING REPORT Signed PATIENT: VINICIUS CHAVES ACCOUNT: [id number] : 1995 LOCATION: ER AGE: 25 SEX: F EXAM STATUS: REG ER ORD. PHYSICIAN: NOEMI PADGETT DO REASON: ruq pain/luq pain PROCEDURE: KUB EXAM: Chest, single view. HISTORY: Right upper quadrant pain COMPARISON: 06/11/2020 FINDINGS: Frontal views of the abdomen are obtained. There is gas and stool within the colon. There is no evidence of bowel obstruction. IMPRESSION: Nonobstructive bowel gas pattern. Electronically signed by: Iman Padron MD (08/17/2020 11:04 AM) [id number] DICTATED AND SIGNED BY: IMAN PADRON MD DATE: 08/17/20 1104 CC: HUGH ELLIOTT DO; NOEMI PADGETT DO ~MTH0 0 Heart Score: Risk Factors: Risk Factors: DM, Current or recent (<one month) smoker, HTN, HLP, family history of CAD, obesity. Risk Scores: Score 0 - 3: 2.5% MACE over next 6 weeks - Discharge Home Score 4 - 6: 20.3% MACE over next 6 weeks - Admit for Clinical Observation Score 7 - 10: 72.7% MACE over next 6 weeks - Early Invasive Strategies Course & Med Decision Making: Course & Med Decision Making Pertinent Labs and Imaging studies reviewed. (See chart for details) Concern for mild upper abdominal pain originally started in left upper quadrant that has moved to the right with associated nausea and an abnormal loose stool. Patient afebrile with no tachycardia, no leukocytosis on labs. Normal CK and lipase. Patient with no positive Ziegler sign and pain is very mild. Has not attempted eating due to fear it will worsen her symptoms. Has no anemia or t hrombocytopenia on labs. Has no risk factors for GI bleeding. Tolerated gi cocktail in ed and agrees with plan to dc home-return for worsening abdominal pain, dehydration or fever (understands imaging not performed at this time given mild presentation and CT-induced malignancies, and exam not c/w gallbladder dz). Encouraged urgent outpatient follow-up with PMD in the next 5 days. Life- threatening processes were considered but are low suspicion at this time, given history, physical exam and ED workup. Pt was educated on all prescription medications and adverse effects. All patient's questions were answered and pt was stable at time of discharge. Life/limb-threatening differential includes but is not limited to, aortic dissection, aortic aneurysm, acute coronary syndrome, surgical abdomen (appendicitis, cholecystitis, ischemic bowel, strangulated hernia, etc), bowel obstruction or volvulus, bladder outlet obstruction, gastrointestinal bleeding, inflammatory bowel disease, peptic ulcer disease, ACS/CAD, sepsis, diverticular disease, ureterolithiasis, nephrolithiasis, ovarian or testicular torsion, ectopic , vaginal hemorrhage, or genitourinary infection. I spoken with the patient and her caregivers. I explained the patient's condition, diagnoses and treatment plan based on the information available to me at this time. I have answered the patient and her caregiver's questions and addressed any concerns. The patient and her caregivers have a good understanding of patient's diagnosis, condition and treatment plan as can be expected at this point. Vital signs have been stable. Patient's condition is stable and appropriate for discharge from the emergency department. Patient will pursue further outpatient evaluation with primary care physician or other designated or consulting physician as outlined in the discharge instructions. The patient and/or caregivers are agreeable to this plan of care and follow-up instructions have been explained in detail. The patient and/or caregivers have received these instructions in written form and have expressed an understanding of the discharge instructions. The patient and/or caregivers are aware that any significant change of condition or worsening of symptoms should prompt immediate return to this or the closest emergency department or call to 911. Altagracia Disclaimer: Altagracia Disclaimer: This electronic medical record was generated, in whole or in part, using a voice recognition dictation system. Departure Departure: Impression: Primary Impression: Nausea Additional Impression: Upper abdominal pain Disposition: 01 DC HOME SELF CARE/HOMELESS Condition: STABLE Referrals: HUGH ELLIOTT DO (PCP) within 5 days for re-evaluation Patient Instructions: Abdominal Pain, Nausea, Adult Additional Instructions: EMERGENCY DEPARTMENT GENERAL DISCHARGE INSTRUCTIONS Thank you for coming to [facility] (ED) today and trusting us with you care. We trust that you had a positivie experience in our Emergency Department. If you wish to speak to the department management, you may call the director at [phone]. YOUR FOLLOW UP INSTRUCTIONS ARE FOLLOWS: 1. Do you have a private Doctor? If you do not have a private doctor, please ask for a resource list of physicians or clinics that may be able to assist you with follow up care. 2. The Emergency Physician has interpreted your x-rays. The X-Ray specialist will also review them. If there is a change in the findings, you will be notified in 48 hours when at all possible. 3. A lab test or culture has been done, your results will be reviewed and you will be notified if you need a change in treatment. ADDITIONAL INSTRUCTIONS AND INFORMATION: 1. Your care today has been supervised by a physician who is specially trained in emergency care. Many problems require more than one evaluation for a complete diagnosis and treatment. We recommend that you schedule your follow up appointment as recommended to ensure complete treatment of you illness or injury. If you are unable to obtain follow up care and continue to have a problem, or if your condition worsens, we recommend that you return to the ED. 2. We are not able to safely determine your condition over the phone nor are we able to give sound medical advice over the phone. For these safety reasons, if you call for medical advice we will ask you to come to the ED for further evaluation. 3. If you have any questions regarding these discharge instructions please call the ED at [phone]. SAFETY INFORMATION: In the interest of safety, wellness, and injury prevention; we encourage you to wear your sealbelt, if you smoke; quite smoking, and we encourage family to use a protec tive helmet for bicycling and other sporting events that present an increased risk for head injury. IF YOUR SYMPTOMS WORSEN OR NEW SYMPTOMS DEVELOP, OR YOU HAVE CONCERNS ABOUT YOUR CONDITION; OR IF YOUR CONDITION WORSENS WHILE YOU ARE WAITING FOR YOUR FOLLOW UP APPOINTMENT; EITHER CONTACT YOUR PRIMARY CARE DOCTOR, THE PHYSICIAN WHOSE NAME AND NUMBER YOU WERE GIVEN, OR RETURN TO THE ED IMMEDIATELY. Scripts Ondansetron (ONDANSETRON ODT) 4 Mg Tab.rapdis 1 TAB PO PRN Q6-8HRS for nausea and vomiting, #16 TAB Prov: NOEMI PADGETT DO 08/17/20 Famotidine (PEPCID) 20 Mg Tablet 1 TAB PO BID for abdominal pain for 14 Days, #28 TAB 0 Refills Prov: NOEMI PADGETT DO 08/17/20 NOEMI PADGETT DO Aug 17, 2020 10:44
[2020-08-17 10:49] LABS: ALBUMIN 3.5 g/dL (3.4-5.0); ALBUMIN/GLOBULIN RATIO 0.9 (1.0-1.7); TOTAL BILIRUBIN 0.3 mg/dL (0.2-1.0); TOTAL PROTEIN 7.5 g/dL (6.4-8.2)
[2020-08-17 10:49] LABS: BARBITURATES NEG (NEG); BENZODIAZEPINES NEG (NEG); CANNABINOIDS NEG (NEG); COCAINE NEG (NEG); METHADONE NEG (NEG); OPIATES NEG (NEG); PHENCYCLIDINE NEG (NEG)
[2020-08-17 10:50] LABS: AMPHETAMINE/METHAMPHETAMINE NEG (NEG)
[2020-08-17 10:55] LABS: BACTERIA,URINE FEW /HPF (0-FEW); BILIRUBIN,URINE NEG (NEG); CLARITY,URINE HAZY; COLOR,URINE YELLOW; GLUCOSE,URINE NEG (NEG); NITRITE,URINE NEG (NEG); RBC,URINE OCC /HPF (0-2); SQUAMOUS EPITHELIAL CELL,UR FEW /LPF; UROBILINOGEN,URINE 0.2 mg/dL (0.2 mg/dL)
[2020-08-17 10:56] LABS: U PREG PATIENT NEGATIVE (NEG)
--- NOTE | 2020-08-17 11:07 | RAD ---
EXAM: Chest, single view. HISTORY: Right upper quadrant pain COMPARISON: 06/11/2020 FINDINGS: Frontal views of the abdomen are obtained. There is gas and stool within the colon. There i s no evidence of bowel obstruction. IMPRESSION: Nonobstructive bowel gas pattern. Electronically signed by: Iman Mcmanus MD (08/17/2020 11:04 AM) [id number]
[2020-08-17] MEDS ORDERED: LIDO:MAALOX 1:1 20 ML SINGLE DOSE. PO ONE (11:30)
[2020-08-17] MEDS ORDERED: ONDA4TAB12 PO (12:02)
[2020-08-17] MEDS ORDERED: FAMO-63 PO (12:02)
[2020-08-17 12:25] VITALS: BP 117/63
== END 2020-08-17 12:25 | disposition home or self-care (01) ==
LOC: ER 09:48
DX: R10.11 Right upper quadrant pain (principal); R11.2 Nausea with vomiting, unspecified; R19.7 Diarrhea, unspecified; K58.9 Irritable bowel syndrome, unspecified; Z98.51 Tubal ligation status; Z88.8 Allergy status to other drugs, medicaments and biological substances
CPT/HCPCS: 36415; 74018; 80053; 80307; 81001; 81025; 82550; 83690; 85025; 96374; 96375; 99284; J1885; J2405